=== PATIENT | female | born 1980 | race Caucasian/White ===

== ENCOUNTER → 2016-09-22 | Outpatient (REF) | payer OTHER ==
[2016-09-22 13:48] LABS: ALBUMIN 4.1 GM/DL (3.2-5.2); ALBUMIN/GLOBULIN RATIO 1.17 (1.00-1.93); ALKALINE PHOSPHATASE 84 U/L (45-117); ALT/SGPT 33 U/L (12-78); ANION GAP 7 MEQ/L (8-16); AST/SGOT 24 U/L (15-37); BILIRUBIN,TOTAL 0.4 MG/DL (0.2-1.0); BLOOD UREA NITROGEN 11 MG/DL (7-18); CALCIUM LEVEL 9.3 MG/DL (8.5-10.1); CARBON DIOXIDE LEVEL 27 MEQ/L (21-32); CHLORIDE LEVEL 106 MEQ/L (98-107); CREATININE FOR GFR 0.79 MG/DL (0.55-1.02); GLOMERULAR FILTRATION RATE > 60.0 (>60); GLUCOSE, FASTING 88 MG/DL (70-105); POTASSIUM SERUM 4.3 MEQ/L (3.5-5.1); SODIUM LEVEL 140 MEQ/L (136-145); TOTAL PROTEIN 7.6 GM/DL (6.4-8.2)
[2016-09-22 14:13] LABS: BASO % 0.7 % (0.0-1.0); EOS % 0.5 % (0.0-3.0); LARGE UNSTAINED CELL # 0.1 K/mm3 (0.0-0.4); LARGE UNSTAINED CELL % 1.5 % (0.0-4.0); LYMPH # 1.8 K/mm3 (1.5-4.5); MEAN CORPUSCULAR HEMOGLOBIN 30.7 pg (27.0-33.0); MEAN CORPUSCULAR HGB CONC 33.5 g/dl (32.0-36.5); MEAN CORPUSCULAR VOLUME 91.6 fl (80.0-96.0); MONO # 0.4 K/mm3 (0.0-0.8); MONO % 4.6 % (0.0-5.0); NEUTROPHILS # 5.6 K/mm3 (1.8-7.7); NEUTROPHILS % 69.8 % (36.0-66.0); PLATELET COUNT, AUTOMATED 311 k/mm3 (150-450); RED CELL DISTRIBUTION WIDTH 12.5 % (11.5-14.5)
[2016-09-24 08:08] LABS: MUMPS VIRUS IgM ANTIBODY <0.80 AU (0.00-0.79)
== END | disposition home or self-care (01) ==
LOC: M SFHCPLAZ 11:21
PROVIDERS: ATTEND Nurse Practitioner Family
DX: K11.20 Sialoadenitis, unspecified (principal)

== ENCOUNTER 2016-09-23 12:35 | Emergency (ER) | payer OTHER ==
[2016-09-23] MEDS ORDERED: MORPHINE 4 MG/ML 1ML SYRINGE As Ordered ONE (13:57)
[2016-09-23 14:08] LABS: BASO % 0.1 % (0.0-1.0); EOS % 0.1 % (0.0-3.0); LARGE UNSTAINED CELL # 0.1 K/mm3 (0.0-0.4); LARGE UNSTAINED CELL % 0.5 % (0.0-4.0); LYMPH % 8.6 % (24.0-44.0); MEAN CORPUSCULAR HEMOGLOBIN 31.3 pg (27.0-33.0); MEAN CORPUSCULAR HGB CONC 34.4 g/dl (32.0-36.5); MONO # 0.2 K/mm3 (0.0-0.8); MONO % 1.7 % (0.0-5.0); NEUTROPHILS % 89.1 % (36.0-66.0); PLATELET COUNT, AUTOMATED 309 k/mm3 (150-450); RED CELL DISTRIBUTION WIDTH 12.6 % (11.5-14.5); WHITE BLOOD COUNT 11.2 K/mm3 (4.0-10.0)
[2016-09-23 14:24] LABS: ANION GAP 7 MEQ/L (8-16); BLOOD UREA NITROGEN 12 MG/DL (7-18); CALCIUM LEVEL 9.1 MG/DL (8.5-10.1); CARBON DIOXIDE LEVEL 27 MEQ/L (21-32); CHLORIDE LEVEL 107 MEQ/L (98-107); CREATININE FOR GFR 0.86 MG/DL (0.55-1.02); GLOMERULAR FILTRATION RATE > 60.0 (>60); GLUCOSE, FASTING 136 MG/DL (70-105); POTASSIUM SERUM 4.2 MEQ/L (3.5-5.1); SODIUM LEVEL 141 MEQ/L (136-145)
[2016-09-23] MEDS ORDERED: ISOVUE-370 76% 100ML VIAL (Q9967) As Ordered ONE (14:41)
[2016-09-23 15:09] LABS: ERYTHROCYTE SEDIMENTATION RATE 24 mm/hr (0-20)
--- NOTE | 2016-09-23 15:10 | REP ---
CT BRAIN WITHOUT CONTRAST: 09/23/2016 No comparison study. CLINICAL HISTORY: Headaches, neck pain. FINDINGS: Soft tissue and bone windows show ventricles midline, symmetric and without dilatation or displacement. The rogers-white junction differentiation was well maintained. There is no intra or extra-axial hemorrhage, mass, mass effect or edema. Basal ganglia and the white matter tracts are unremarkable. The cortical stripe was preserved. Brainstem and cerebellum intact. Basal cisterns unremarkable. The visualized sinuses and mastoids are clear. The calvarium and skull base are without fracture or focal lesion. IMPRESSION: 1. Normal noncontrast CT brain. No intracranial hemorrhage, mass, edema or other acute finding. The skull base, calvarium, visible sinuses and mastoids are intact. Signed by Tae Staton MD 09/23/2016 05:08 P
[2016-09-23] MEDS ORDERED: KETOROLAC 30 MG/ML VIAL (J1885) As Ordered ONE (15:29)
[2016-09-23] MEDS ORDERED: CLINDAMYCIN 600 MG/50 ML PREMIX BAG As Ordered ONE (15:29)
--- NOTE | 2016-09-23 15:39 | REP ---
CT SOFT-TISSUE NECK WITH CONTRAST: 09/23/2016. Clinical history: Neck pain, Devin's angina versus retropharyngeal abscess. Technique: Bolus of 100 mls of Isovue 370 given with axial images in both coronal and sagittal reconstructions provided. Findings: Dense spray artifact from dental amalgam from the maxillary and mandibular dentition. This limits evaluation in these areas. I do not see asymmetry, fluid collections, edema or subcutaneous emphysema in the submandibular space on either side. The submandibular gland is slightly enlarged on the left compared to the right. There is no evidence of fluid collection or abscess within it. There is a node adjacent to the left submandibular gland up to 6.4 mm in short axis, while on the right side it is 6.6 mm, although the gland is smaller. These are not felt to be of pathologic size. Tongue base intact. Parapharyngeal spaces preserved. Epiglottis, its folds, the valleculae and piriform sinuses are all unremarkable. Larynx and subglottic trachea intact as are the thyroid lobes. The parotid glands are symmetric and normal. Some mild subcutaneous edema around the mandible on each side. It is not well defined and there is no fluid collection or abscess evident. This could be inflammatory change or phlegmon. Anterior and posterior strap muscles of the neck were intact. Visualized vascular structures grossly intact. The bone window settings show cervical spine, its posterior elements, craniocervical junction and skull base intact. Mandible has multiple absent teeth without destructive lesion or fracture. Visualized mastoids show no acute finding. Sinuses were clear. Impression: 1. There is no CT evidence of airway compromise from the nasopharynx through the subglottic trachea. No prevertebral swelling, submandibular abscess or Devin's angina suggested. 2. Slightly asymmetrically larger left than right submandibular gland, but the parotid glands are symmetric and there is no pathologic sized adenopathy with the largest nodes in the neck adjacent to the submandibular gland on each side, a little over 6 mm and fairly symmetric. 3. No abnormal fluid collection or abscess anywhere in the neck soft tissues. There is some subcutaneous edema around the mandible which is ill defined and without fluid collection or destructive lesion of the mandible itself. Signed by Tae Staton MD 09/23/2016 05:09 P
[2016-09-23] MEDS ORDERED: PERCOCET 5MG/325MG TAB As Ordered ONE (16:20)
[2016-09-23] MEDS ORDERED: METOCLOPRAMIDE INJ 10MG/2ML VIAL (J2765) As Ordered ONE (16:52)
[2016-09-23] MEDS ORDERED: diphenhydrAMINE INJ 50MG/ML VIAL (J1200) As Ordered ONE (16:52)
--- NOTE | 2016-09-23 17:58 | EDDOCDS ---
Physician Documentation [facility] Name: Debra Alvarado Age: 35 yrs Sex: Female : 1980 Arrival Date: 09/23/2016 Time: 12:35 Bed I5 / M5 Private MD: Kitty Lopez D Disposition: 09/23/16 16:12 Discharged to Home/Self Care. Impression: Cellulitis of face - CHIN, Headache. - Condition is Stable. - Discharge Instructions: Cellulitis. - Prescriptions for Clindamycin HCl 300 mg Oral Capsule - take 1 capsule by ORAL route every 6 hours; 40 capsule. Percocet 5- 325 mg Oral Tablet - take 1 tablet by ORAL route every 6 hours As needed MDD: 4 tabs; 15 tablet. - Medication Reconciliation, Local Pharmacy Hours form. - Follow up: Emergency Department; When: As needed; Reason: Worsening of conditions. Follow up: Private Physician; When: 2 - 3 days; Reason: Wound/Symptom Recheck, Recheck today's complaints, Continuance of care. - Problem is new. - Symptoms are unchanged. Historical: - Allergies: Augmentin; Bees; Biaxin; Codeine Sulfate; Tramadol HCl; - Home Meds: 1. chlorthalidone 25 mg Oral tab 0.5 tab once daily 2. carvedilol 3.125 mg oral tab 1 tab 2 times per day 3. losartan 100 mg oral tab 1 tab once daily nightly 4. spironolactone 25 mg Oral tab 0.5 tab once daily 5. Prednisone 40mg x 5 days Oral 6. naproxen 500 mg Oral TbEC 1 tab 2 times per day - PMHx: Hypertension; Left adrenal tumor; - PSHx: Laparoscopy; ; Cholecystectomy; Tonsillectomy; ulnar nerve transposition; - Social history: Smoking status: Patient states was never smoker of tobacco. No barriers to communication noted, The patient speaks fluent Faroese, Speaks appropriately for age. - Family history: Not pertinent. - : The pt / caregiver states he / she is not on anticoagulants. Home medication list is obtained from the patient. - Exposure Risk Screening:: None identified. 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 7 in. (170.18 cm) (R); Pain 8/10; 13:19 BP 175 / 99 LA Sitting (auto/lg); ct3 13:22 BP 168 / 92 RA Sitting (man/lg); ct3 16:13 BP 192 / 100; Pulse 61; Resp 20; Temp 97.8(TE); Pulse Ox 99% on R/A; Pain 8/10; jml1 16:41 BP 200 / 108 LA Supine (man/lg); jml1 17:26 Pain 5/10; mcp 17:27 BP 150 / 90; Pain 5/10; mcp 12:37 Body Mass Index 36.96 (107.05 kg, 170.18 cm) jrd MDM: 13:02 Recheck B/P ordered. dt4 13:31 IV Saline Lock ordered. dt4 13:31 NS 0.9% 1000 ml IV at bolus once ordered. dt4 13:31 morphine 4 mg IVP once ordered. dt4 13:32 CBC with Diff Ordered. EDMS 13:32 Basic Metabolic Profile Ordered. EDMS 13:32 CRP Ordered. EDMS 13:32 Sed Rate Ordered. EDMS 13:32 CT Neck With Contrast Ordered. EDMS 13:47 -Blood Culture (Adults Only), peripheral from different site, or from device/port/PICC dt4 etc. if present ordered. 13:48 Lactic Acid (Wetzel tube on ice) Ordered. EDMS 13:48 -Blood Culture Ordered. EDMS 13:49 CT Head Without Contrast Ordered. EDMS 14:00 -Blood Culture (Adults Only), peripheral from different site, or from device/port/PICC jml1 etc. if present complete. 14:01 BLOOD CULTURES Ordered. EDMS 15:19 ketorolac 15 mg IVP once ordered. dt4 15:22 Clindamycin 600 mg IVPB once over 30 mins; dilute in 50mL of NS or D5W ordered. dt4 16:13 oxyCODONE-acetaminophen 5 mg-325 mg 1 tabs PO once ordered. dt4 16:42 Metoclopramide 20 mg IV at 80 mg/hr once over 15 mins ordered. dt4 16:42 diphenhydrAMINE 25 mg IVP once ordered. dt4 Administered Medications: 14:01 Drug: NS 0.9% 1000 ml [sodium chloride 0.9 % intravenous solution] Route: IV; Rate: mcp bolus; Site: right antecubital; 14:01 Drug: morphine 4 mg [morphine 4 mg/mL intravenous cartridge (1 mL)] Route: IVP; Site: mcp right antecubital; 15:38 Drug: ketorolac 15 mg [ketorolac 30 mg/mL (1 mL) injection solution (0.5 mL)] Route: mcp IVP; Site: right antecubital; 15:38 Drug: Clindamycin 600 mg [clindamycin 600 mg/50 mL in 5 % dextrose intravenous mcp piggyback] Route: IVPB; Infused Over: 30 mins; Site: right antecubital; 16:24 Drug: oxyCODONE-acetaminophen 1 tabs [oxycodone-acetaminophen 5 mg-325 mg tablet (1 mk4 tabs)] Route: PO; 16:59 Drug: Metoclopramide 20 mg [metoclopramide 5 mg/mL injection solution] Route: IV; Rate: mcp 80 mg/hr; Infused Over: 15 mins; Site: right antecubital; 17:26 Follow up: Pain 5/10 Adult; IV Status: Completed infusion; IV Intake: 17ml mcp 16:59 Drug: diphenhydrAMINE 25 mg [diphenhydramine 50 mg/mL injection solution (0.5 mL)] mcp Route: IVP; Site: right antecubital; Signatures: Dispatcher [employer] Mar Kunz RN RN mcp Helmerci, Jennifer, RN RN jo3 Traver, Jamie jm Emily Parks RN RN mk4 Marielena Garduno PA-C PAJennifer dt4 MTDD
--- NOTE | 2016-09-23 17:58 | EDDOCDS ---
Nurse's Notes [facility] Name: Debra Alvarado Age: 35 yrs Sex: Female : 1980 Arrival Date: 09/23/2016 Time: 12:35 Bed I5 / M5 Private MD: Kitty Lopez D Diagnosis: Cellulitis of face-CHIN;Headache Presentation: 09/23 12:49 Presenting complaint: Patient states: Diagnosed with Mumps and symptoms are worsening jo3 so PCP referred pt to come to ED. Facial swelling and stiff neck with MALHOTRA and muscle soreness. This patient has no additional risk factors. Adult Sepsis Screening: The patient does not have new or worsening altered mentation. Patient's respiratory rate is less than 22. Systolic blood pressure is greater than 100. Patient has a qSOFA score of 0- Negative Sepsis Screen. Suicide/Homicide risk assessment- the patient denies having any suicidal and/or homicidal ideations and does not present with any other emotional, behavioral or mental health complaints. Status: Patient is not a mobile equipment servicer or dependent. Transition of care: patient was not received from another setting of care. 12:49 Acuity: DEV Level 3 jo3 12:49 Method Of Arrival: Walkin/Carried/Asstd jo3 Triage Assessment: 12:54 Headache History: This patient does not have a history of previous headaches. General: jo3 Appears in no apparent distress, Behavior is appropriate for age, cooperative. Pain: Pain currently is 8 out of 10 on a pain scale. HIV screening NA for this visit Offered previously. Neurological: Level of Consciousness is awake, alert, Oriented to person, place, time. 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 chlorthalidone 25 mg Oral tab 0.5 tab once daily 2. carvedilol 3.125 mg oral tab 1 tab 2 times per day 3. losartan 100 mg oral tab 1 tab once daily nightly 4. spironolactone 25 mg Oral tab 0.5 tab once daily 5. Prednisone 40mg x 5 days Oral 6. naproxen 500 mg Oral TbEC 1 tab 2 times per day - PMHx: Hypertension; Left adrenal tumor; - PSHx: Laparoscopy; ; Cholecystectomy; Tonsillectomy; ulnar nerve transposition; - Social history: Smoking status: Patient states was never smoker of tobacco. No barriers to communication noted, The patient speaks fluent Salvadorean, Speaks appropriately for age. - Family history: Not pertinent. - : The pt / caregiver states he / she is not on anticoagulants. Home medication list is obtained from the patient. - Exposure Risk Screening:: None identified. Screenin:02 Screening information is obtained from the patient. Fall risk: No risks identified. mcp Assistance ADL's: requires no assistance with activities of daily living. Abuse/DV Screen: The patient / caregiver reports he/she is: not in a situation that causes fear, pain or injury. Nutritional screening: No deficits noted. Advance Directives: Currently, there is no health care proxy. There is no active DNR order. There is no Power of Librarian Special Collections. home support is adequate. Assessment: 14:01 General: Appears uncomfortable, Behavior is cooperative. Pain: Location: head and neck mcp Pain currently is 8 out of 10 on a pain scale. Neurological: Reports headache. Respiratory: Airway is patent Respiratory effort is even, unlabored. Derm: Skin is pink, warm & dry. 14:45 General: Appears uncomfortable, Behavior is cooperative, crying. Pain: Location: neck mcp and head Pain currently is 8 out of 10 on a pain scale. Neurological: Reports headache. Respiratory: Airway is patent Respiratory effort is even, unlabored. Derm: Skin is pink, warm & dry. 15:40 EENT: Derm: Skin is flushed. mcp 15:58 General: Appears uncomfortable, Behavior is cooperative. mcp 17:29 General: Appears uncomfortable, Behavior is cooperative. Pain: Location: head Pain mcp currently is 5 out of 10 on a pain scale. Neurological: Reports headache. Respiratory: Airway is patent Respiratory effort is even, unlabored. Derm: Skin is pink, warm & dry. 17:55 General: Appears in no apparent distress, comfortable, Behavior is cooperative. Pain: mk4 Denies pain. 17:56 Reassessment: Patient states feeling better. Patient states symptoms have improved. mk4 Vital Signs: 12:37 BP 184 / 104; Pulse 75; Resp 16; Temp 98.8; Pulse Ox 99% on R/A; Weight 107.05 kg (R); jrd Height 5 ft. 7 in. (170.18 cm) (R); Pain 8/10; 13:19 BP 175 / 99 LA Sitting (auto/lg); ct3 13:22 BP 168 / 92 RA Sitting (man/lg); ct3 16:13 BP 192 / 100; Pulse 61; Resp 20; Temp 97.8(TE); Pulse Ox 99% on R/A; Pain 8/10; jml1 16:41 BP 200 / 108 LA Supine (man/lg); jml1 17:26 Pain 5/10; mcp 17:27 BP 150 / 90; Pain 5/10; mcp 12:37 Body Mass Index 36.96 (107.05 kg, 170.18 cm) d Vitals: 12:37 Log In Time: September 23, 2016 at 12:29. [facility] ED Course: 12:37 Patient visited by Michael Andrade PCA. jrd 12:37 Kitty Lopez is Private Physician. jrd 12:37 Patient moved to Waiting jrd 12:39 Patient visited by Michael Andrade PCA. jrd 12:39 Patient moved to Pre RCE jrd 12:51 Triage Initiated jo3 12:55 Patient visited by Debra Arnold RN. jo3 12:57 Patient moved to Triage 3 kcs 13:01 Marielena Garduno PA-C is PHCP. dt4 13:01 Rhea Calvert MD is Attending Physician. dt4 13:01 Patient visited by Marielena Garduno PA-C. dt4 13:19 Patient visited by Clara Solorio PCA. ct3 13:22 Patient visited by Clara Solorio PCA. ct3 13:35 Patient moved to I5 / M5 ct3 13:56 Lactic Acid (Wetzel tube on ice) Sent. mcp 13:56 -Blood Culture Sent. mcp 13:56 Sed Rate Sent. mcp 13:56 CRP Sent. mcp 13:56 Basic Metabolic Profile Sent. mcp 13:56 CBC with Diff Sent. mcp 14:02 The patient / caregiver is instructed regarding the plan of care and ED course. Patient mcp has correct armband on for positive identification. Placed in gown. Bed in low position. Call light in reach. 14:02 Inserted saline lock: 20 gauge in right antecubital area and blood collected. The [facility] patient tolerated the procedure well. Labs drawn. (by ED staff). Sent per order to lab. 14:03 Patient visited by Mar Garcia RN. [facility] 14:08 BLOOD CULTURES Sent. jml1 15:09 Patient visited by Emily Parks RN. mk4 15:19 Patient visited by Marielena Garduno PA-C. dt4 15:19 Warm blanket given. jml1 15:20 Patient visited by Willis Disla. jml1 15:36 Patient visited by Mar Garcia RN. mcp 15:40 No procedures done that require assistance. mcp 15:46 CT Head Without Contrast Returned. EDIL 15:47 CT Neck With Contrast Returned. EDMS 16:08 Patient visited by Emily Parks RN. mk4 16:13 Patient visited by Willis Disla. jml1 16:41 Patient visited by Willis Disla. jml1 17:30 Patient visited by Mar Garcia RN. [facility] Administered Medications: 14:01 Drug: NS 0.9% 1000 ml [sodium chloride 0.9 % intravenous solution] Route: IV; Rate: mcp bolus; Site: right antecubital; 14:01 Drug: morphine 4 mg [morphine 4 mg/mL intravenous cartridge (1 mL)] Route: IVP; Site: [facility] right antecubital; 15:38 Drug: ketorolac 15 mg [ketorolac 30 mg/mL (1 mL) injection solution (0.5 mL)] Route: mcp IVP; Site: right antecubital; 15:38 Drug: Clindamycin 600 mg [clindamycin 600 mg/50 mL in 5 % dextrose intravenous mcp piggyback] Route: IVPB; Infused Over: 30 mins; Site: right antecubital; 16:24 Drug: oxyCODONE-acetaminophen 1 tabs [oxycodone-acetaminophen 5 mg-325 mg tablet (1 mk4 tabs)] Route: PO; 16:59 Drug: Metoclopramide 20 mg [metoclopramide 5 mg/mL injection solution] Route: IV; Rate: mcp 80 mg/hr; Infused Over: 15 mins; Site: right antecubital; 17:26 Follow up: Pain 5/10 Adult; IV Status: Completed infusion; IV Intake: 17ml [facility] 16:59 Drug: diphenhydrAMINE 25 mg [diphenhydramine 50 mg/mL injection solution (0.5 mL)] mcp Route: IVP; Site: right antecubital; Intake: 17:26 IV: 17.00ml; Total: 17.00ml. mcp Order Results: Lab Order: CBC with Diff; SPEC'M 09/23/16 13:54 Test: WHITE BLOOD COUNT; Value: 11.2; Range: 4.0-10.0; Abnormal: Above high normal; Units: K/mm3; Status: F Test: RED BLOOD COUNT; Value: 4.39; Range: 4.00-5.40; Units: M/mm3; Status: F Test: HEMOGLOBIN; Value: 13.8; Range: 12.0-16.0; Units: g/dl; Status: F Test: HEMATOCRIT; Value: 40.0; Range: 36.0-47.0; Units: %; Status: F Test: MEAN CORPUSCULAR VOLUME; Value: 91.0; Range: 80.0-96.0; Units: fl; Status: F Test: MEAN CORPUSCULAR HEMOGLOBIN; Value: 31.3; Range: 27.0-33.0; Units: pg; Status: F Test: MEAN CORPUSCULAR HGB CONC; Value: 34.4; Range: 32.0-36.5; Units: g/dl; Status: F Test: RED CELL DISTRIBUTION WIDTH; Value: 12.6; Range: 11.5-14.5; Units: %; Status: F Test: PLATELET COUNT, AUTOMATED; Value: 309; Range: 150-450; Units: k/mm3; Status: F Test: NEUTROPHILS %; Value: 89.1; Range: 36.0-66.0; Abnormal: Above high normal; Units: %; Status: F Test: LYMPH %; Value: 8.6; Range: 24.0-44.0; Abnormal: Below low normal; Units: %; Status: F Test: MONO %; Value: 1.7; Range: 0.0-5.0; Units: %; Status: F Test: EOS %; Value: 0.1; Range: 0.0-3.0; Units: %; Status: F Test: BASO %; Value: 0.1; Range: 0.0-1.0; Units: %; Status: F Test: LARGE UNSTAINED CELL %; Value: 0.5; Range: 0.0-4.0; Units: %; Status: F Test: NEUTROPHILS #; Value: 10.0; Range: 1.8-7.7; Abnormal: Above high normal; Units: K/mm3; Status: F Test: LYMPH #; Value: 1.0; Range: 1.5-4.5; Abnormal: Below low normal; Units: K/mm3; Status: F Test: MONO #; Value: 0.2; Range: 0.0-0.8; Units: K/mm3; Status: F Test: EOS #; Value: 0.0; Range: 0.0-0.50; Units: K/mm3; Status: F Test: BASO #; Value: 0.0; Range: 0.0-0.2; Units: K/mm3; Status: F Test: LARGE UNSTAINED CELL #; Value: 0.1; Range: 0.0-0.4; Units: K/mm3; Status: F Lab Order: Basic Metabolic Profile; [facility] 09/23/16 13:54 Test: GLUCOSE, FASTING; Value: 136; Range: 70-105; Abnormal: Above high normal; Units: MG/DL; Status: F Test: BLOOD UREA NITROGEN; Value: 12; Range: 7-18; Units: MG/DL; Status: F Test: CREATININE FOR GFR; Value: 0.86; Range: 0.55-1.02; Units: MG/DL; Status: F Test: GLOMERULAR FILTRATION RATE; Value: > 60.0; Range: >60; Status: F Test: SODIUM LEVEL; Value: 141; Range: 136-145; Units: MEQ/L; Status: F Test: POTASSIUM SERUM; Value: 4.2; Range: 3.5-5.1; Units: MEQ/L; Status: F Test: CHLORIDE LEVEL; Value: 107; Range: 98-107; Units: MEQ/L; Status: F Test: CARBON DIOXIDE LEVEL; Value: 27; Range: 21-32; Units: MEQ/L; Status: F Test: ANION GAP; Value: 7; Range: 8-16; Abnormal: Below low normal; Units: MEQ/L; Status: F Test: CALCIUM LEVEL; Value: 9.1; Range: 8.5-10.1; Units: MG/DL; Status: F Test Note: ; Units are mL/min/1.73 m2 Chronic Kidney Disease Staging per NKF: Stage I & II GFR >=60 Normal to Mildly Decreased Stage III GFR 30-59 Moderately Decreased Stage IV GFR 15-29 Severely Decreased Stage V GFR <15 Very Little GFR Left ESRD 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 <15 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 Lab Order: CRP; SPEC09/23/16 13:54 Test: C REACTIVE PROTEIN QUANTITATIV; Value: 0.72; Range: 0.00-0.30; Abnormal: Above high normal; Units: MG/DL; Status: F Lab Order: Sed Rate; [facility]09[facility] 13:54 Test: ERYTHROCYTE SEDIMENTATION RATE; Value: 24; Range: 0-20; Abnormal: Above high normal; Units: mm/hr; Status: F Lab Order: Lactic Acid (Wetzel tube on ice); [facility]09/[facility] 13:54 Test: LACTIC ACID SEPSIS PROTOCOL; Value: 1.6; Range: 0.4-2.0; Units: MMOL/L; Status: F Radiology Order: CT Neck With Contrast Test: CT Neck With Contrast REASON FOR EXAMINATION: neck pain, ludvig's angina vs retrophar abscess; CT SOFT-TISSUE NECK WITH CONTRAST: 09/23/2016.; ; Clinical history: Neck pain, Devin's angina versus retropharyngeal abscess.; ; Technique: Bolus of 100 mls of Isovue 370 given with axial images in both coronal; and sagittal reconstructions provided.; ; Findings: Dense spray artifact from dental amalgam from the maxillary and; mandibular dentition. This limits evaluation in these areas. I do not see; asymmetry, fluid collections, edema or subcutaneous emphysema in the; submandibular space on either side. The submandibular gland is slightly enlarged; on the left compared to the right. There is no evidence of fluid collection or; abscess within it. There is a node adjacent to the left submandibular gland up; to 6.4 mm in short axis, while on the right side it is 6.6 mm, although the gland; is smaller. These are not felt to be of pathologic size. Tongue base intact.; Parapharyngeal spaces preserved. Epiglottis, its folds, the valleculae and; piriform sinuses are all unremarkable. Larynx and subglottic trachea intact as; are the thyroid lobes. The parotid glands are symmetric and normal. Some mild; subcutaneous edema around the mandible on each side. It is not well defined and; there is no fluid collection or abscess evident. This could be inflammatory; change or phlegmon. Anterior and posterior strap muscles of the neck were; intact. Visualized vascular structures grossly intact. The bone window settings; show cervical spine, its posterior elements, craniocervical junction and skull; base intact. Mandible has multiple absent teeth without destructive lesion or; fracture.; ; Visualized mastoids show no acute finding. Sinuses were clear.; ; Impression:; ; 1. There is no CT evidence of airway compromise from the nasopharynx through the; subglottic trachea. No prevertebral swelling, submandibular abscess or Devin's; angina suggested.; ; 2. Slightly asymmetrically larger left than right submandibular gland, but the; parotid glands are symmetric and there is no pathologic sized adenopathy with the; largest nodes in the neck adjacent to the submandibular gland on each side, a; little over 6 mm and fairly symmetric.; ; 3. No abnormal fluid collection or abscess anywhere in the neck soft tissues.; There is some subcutaneous edema around the mandible which is ill defined and; without fluid collection or destructive lesion of the mandible itself.; ; ; Signed by; Tae Staton MD 09/23/2016 05:09 P; Radiology Order: CT Head Without Contrast Test: CT Head Without Contrast REASON FOR EXAMINATION: malhotra, neck pain; CT BRAIN WITHOUT CONTRAST: 09/23/2016; ; No comparison study.; ; CLINICAL HISTORY: Headaches, neck pain.; ; FINDINGS: Soft tissue and bone windows show ventricles midline, symmetric and; without dilatation or displacement. The wetzel-white junction differentiation was; well maintained. There is no intra or extra-axial hemorrhage, mass, mass effect; or edema. Basal ganglia and the white matter tracts are unremarkable. The; cortical stripe was preserved. Brainstem and cerebellum intact. Basal cisterns; unremarkable. The visualized sinuses and mastoids are clear. The calvarium and; skull base are without fracture or focal lesion.; ; IMPRESSION:; ; 1. Normal noncontrast CT brain. No intracranial hemorrhage, mass, edema or; other acute finding. The skull base, calvarium, visible sinuses and mastoids are; intact.; ; ; Signed by; Tae Staton MD 09/23/2016 05:08 P; Outcome: 16:12 Discharge ordered by Provider. dt4 17:55 Discharge Assessment: Patient awake, alert and oriented x 3. No cognitive and/or mk4 functional deficits noted. Patient verbalized understanding of disposition instructions. Patient awake and alert. Discharge Assessment: patient administered narcotics - yes. Pt provided with safe discharge. The following High Risk Discharge criteria are identified: None. Condition: good Condition: stable Condition: improved. Property sent home with patient. 17:56 CT Study completed. mk4 17:57 Patient left the ED. mk4 Signatures: Dispatcher [employer] EDMS Alejandra Scott RN Mar Saenz RN RN mcp Helmerci, Jennifer, RN RN jo3 Clara Solorio, HULL INSPECTOR HULL INSPECTOR ct3 Willis Disla jml1 Emily Parks RN RN mk4 Marielena Garduno, PA-C PA-C dt4 Michael Andrade, HULL INSPECTOR HULL INSPECTOR jrd MARIAND
--- NOTE | 2016-09-25 18:58 | EDDOCDS ---
Physician Documentation [facility] Name: Debra Alvarado Age: 35 yrs Sex: Female : 1980 Arrival Date: 09/23/2016 Time: 12:35 Bed I5 / M5 Private MD: Kitty Lopez D Disposition: 09/23/16 16:12 Discharged to Home/Self Care. Impression: Cellulitis of face - CHIN, Headache. - Condition is Stable. - Discharge Instructions: Cellulitis. - Prescriptions for Clindamycin HCl 300 mg Oral Capsule - take 1 capsule by ORAL route every 6 hours; 40 capsule. Percocet 5- 325 mg Oral Tablet - take 1 tablet by ORAL route every 6 hours As needed MDD: 4 tabs; 15 tablet. - Medication Reconciliation, Local Pharmacy Hours form. - Follow up: Emergency Department; When: As needed; Reason: Worsening of conditions. Follow up: Private Physician; When: 2 - 3 days; Reason: Wound/Symptom Recheck, Recheck today's complaints, Continuance of care. - Problem is new. - Symptoms are unchanged. Historical: - Allergies: Augmentin; Bees; Biaxin; Codeine Sulfate; Tramadol HCl; - Home Meds: 1. chlorthalidone 25 mg Oral tab 0.5 tab once daily 2. carvedilol 3.125 mg oral tab 1 tab 2 times per day 3. losartan 100 mg oral tab 1 tab once daily nightly 4. spironolactone 25 mg Oral tab 0.5 tab once daily 5. Prednisone 40mg x 5 days Oral 6. naproxen 500 mg Oral TbEC 1 tab 2 times per day - PMHx: Hypertension; Left adrenal tumor; - PSHx: Laparoscopy; ; Cholecystectomy; Tonsillectomy; ulnar nerve transposition; - Social history: Smoking status: Patient states was never smoker of tobacco. No barriers to communication noted, The patient speaks fluent Chilean, Speaks appropriately for age. - Family history: Not pertinent. - : The pt / caregiver states he / she is not on anticoagulants. Home medication list is obtained from the patient. - Exposure Risk Screening:: None identified. 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 7 in. (170.18 cm) (R); Pain 8/10; 13:19 BP 175 / 99 LA Sitting (auto/lg); ct3 13:22 BP 168 / 92 RA Sitting (man/lg); ct3 16:13 BP 192 / 100; Pulse 61; Resp 20; Temp 97.8(TE); Pulse Ox 99% on R/A; Pain 8/10; jml1 16:41 BP 200 / 108 LA Supine (man/lg); jml1 17:26 Pain 5/10; mcp 17:27 BP 150 / 90; Pain 5/10; mcp 12:37 Body Mass Index 36.96 (107.05 kg, 170.18 cm) jrd MDM: 13:02 Recheck B/P ordered. dt4 13:31 IV Saline Lock ordered. dt4 13:31 NS 0.9% 1000 ml IV at bolus once ordered. dt4 13:31 morphine 4 mg IVP once ordered. dt4 13:32 CBC with Diff Ordered. EDMS 13:32 Basic Metabolic Profile Ordered. EDMS 13:32 CRP Ordered. EDMS 13:32 Sed Rate Ordered. EDMS 13:32 CT Neck With Contrast Ordered. EDMS 13:47 -Blood Culture (Adults Only), peripheral from different site, or from device/port/PICC dt4 etc. if present ordered. 13:48 Lactic Acid (Wetzel tube on ice) Ordered. EDMS 13:48 -Blood Culture Ordered. EDMS 13:49 CT Head Without Contrast Ordered. EDMS 14:00 -Blood Culture (Adults Only), peripheral from different site, or from device/port/PICC jml1 etc. if present complete. 14:01 BLOOD CULTURES Ordered. EDMS 15:19 ketorolac 15 mg IVP once ordered. dt4 15:22 Clindamycin 600 mg IVPB once over 30 mins; dilute in 50mL of NS or D5W ordered. dt4 16:13 oxyCODONE-acetaminophen 5 mg-325 mg 1 tabs PO once ordered. dt4 16:42 Metoclopramide 20 mg IV at 80 mg/hr once over 15 mins ordered. dt4 16:42 diphenhydrAMINE 25 mg IVP once ordered. dt4 18:55 [facility] Payment Agreement was scanned into Listia and attached to record. luzmaria 18:55 Financial registration complete. luzmaria 09/24 09:11 T-Sheet-- Draft Copy was scanned into [employer]ia and attached to record. gb 09:12 Radiology Report was scanned into [employer] and attached to record. gb Administered Medications: 09/23 14:01 Drug: NS 0.9% 1000 ml [sodium chloride 0.9 % intravenous solution] Route: IV; Rate: mcp bolus; Site: right antecubital; 14:01 Drug: morphine 4 mg [morphine 4 mg/mL intravenous cartridge (1 mL)] Route: IVP; Site: mcp right antecubital; 15:38 Drug: ketorolac 15 mg [ketorolac 30 mg/mL (1 mL) injection solution (0.5 mL)] Route: mcp IVP; Site: right antecubital; 15:38 Drug: Clindamycin 600 mg [clindamycin 600 mg/50 mL in 5 % dextrose intravenous mcp piggyback] Route: IVPB; Infused Over: 30 mins; Site: right antecubital; 16:24 Drug: oxyCODONE-acetaminophen 1 tabs [oxycodone-acetaminophen 5 mg-325 mg tablet (1 mk4 tabs)] Route: PO; 16:59 Drug: Metoclopramide 20 mg [metoclopramide 5 mg/mL injection solution] Route: IV; Rate: mcp 80 mg/hr; Infused Over: 15 mins; Site: right antecubital; 17:26 Follow up: Pain 5/10 Adult; IV Status: Completed infusion; IV Intake: 17ml mcp 16:59 Drug: diphenhydrAMINE 25 mg [diphenhydramine 50 mg/mL injection solution (0.5 mL)] [facility] Route: IVP; Site: right antecubital; Signatures: Dispatcher [employer] Mar Kunz RN RN mcp Barnhardt, Gloria, Debra Coe RN RN jo3 Traver, Jamie jml1 King, Margaret, RN RN mk4 Marielena Garduno, PAJennifer PACharla Davis The chart was reviewed and I authenticate all verbal orders and agree with the evaluation and treatment provided.Attachments: 18:55 [facility] Payment Agreement jared 09/24 09:11 T-Sheet-- Draft Copy gb Chart Complete MTDD
--- NOTE | 2016-09-25 18:58 | EDDOCDS ---
Nurse's Notes [facility] Name: Debra Alvarado Age: 35 yrs Sex: Female : 1980 Arrival Date: 09/23/2016 Time: 12:35 Bed I5 / M5 Private MD: Kitty Lpoez D Diagnosis: Cellulitis of face-CHIN;Headache Presentation: 09/23 12:49 Presenting complaint: Patient states: Diagnosed with Mumps and symptoms are worsening jo3 so PCP referred pt to come to ED. Facial swelling and stiff neck with MALHOTRA and muscle soreness. This patient has no additional risk factors. Adult Sepsis Screening: The patient does not have new or worsening altered mentation. Patient's respiratory rate is less than 22. Systolic blood pressure is greater than 100. Patient has a qSOFA score of 0- Negative Sepsis Screen. Suicide/Homicide risk assessment- the patient denies having any suicidal and/or homicidal ideations and does not present with any other emotional, behavioral or mental health complaints. 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 Transition of care: patient was not received from another setting of care. 12:49 Acuity: DEV Level 3 jo3 12:49 Method Of Arrival: Walkin/Carried/Asstd jo3 Triage Assessment: 12:54 Headache History: This patient does not have a history of previous headaches. General: jo3 Appears in no apparent distress, Behavior is appropriate for age, cooperative. Pain: Pain currently is 8 out of 10 on a pain scale. HIV screening NA for this visit Offered previously. Neurological: Level of Consciousness is awake, alert, Oriented to person, place, time. 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 chlorthalidone 25 mg Oral tab 0.5 tab once daily 2. carvedilol 3.125 mg oral tab 1 tab 2 times per day 3. losartan 100 mg oral tab 1 tab once daily nightly 4. spironolactone 25 mg Oral tab 0.5 tab once daily 5. Prednisone 40mg x 5 days Oral 6. naproxen 500 mg Oral TbEC 1 tab 2 times per day - PMHx: Hypertension; Left adrenal tumor; - PSHx: Laparoscopy; ; Cholecystectomy; Tonsillectomy; ulnar nerve transposition; - Social history: Smoking status: Patient states was never smoker of tobacco. No barriers to communication noted, The patient speaks fluent Ugandan, Speaks appropriately for age. - Family history: Not pertinent. - : The pt / caregiver states he / she is not on anticoagulants. Home medication list is obtained from the patient. - Exposure Risk Screening:: None identified. Screenin:02 Screening information is obtained from the patient. Fall risk: No risks identified. mcp Assistance ADL's: requires no assistance with activities of daily living. Abuse/DV Screen: The patient / caregiver reports he/she is: not in a situation that causes fear, pain or injury. Nutritional screening: No deficits noted. Advance Directives: Currently, there is no health care proxy. There is no active DNR order. There is no Power of Director Records Management. home support is adequate. Assessment: 14:01 General: Appears uncomfortable, Behavior is cooperative. Pain: Location: head and neck mcp Pain currently is 8 out of 10 on a pain scale. Neurological: Reports headache. Respiratory: Airway is patent Respiratory effort is even, unlabored. Derm: Skin is pink, warm & dry. 14:45 General: Appears uncomfortable, Behavior is cooperative, crying. Pain: Location: neck mcp and head Pain currently is 8 out of 10 on a pain scale. Neurological: Reports headache. Respiratory: Airway is patent Respiratory effort is even, unlabored. Derm: Skin is pink, warm & dry. 15:40 EENT: Derm: Skin is flushed. mcp 15:58 General: Appears uncomfortable, Behavior is cooperative. mcp 17:29 General: Appears uncomfortable, Behavior is cooperative. Pain: Location: head Pain mcp currently is 5 out of 10 on a pain scale. Neurological: Reports headache. Respiratory: Airway is patent Respiratory effort is even, unlabored. Derm: Skin is pink, warm & dry. 17:55 General: Appears in no apparent distress, comfortable, Behavior is cooperative. Pain: mk4 Denies pain. 17:56 Reassessment: Patient states feeling better. Patient states symptoms have improved. mk4 Vital Signs: 12:37 BP 184 / 104; Pulse 75; Resp 16; Temp 98.8; Pulse Ox 99% on R/A; Weight 107.05 kg (R); jrd Height 5 ft. 7 in. (170.18 cm) (R); Pain 8/10; 13:19 BP 175 / 99 LA Sitting (auto/lg); ct3 13:22 BP 168 / 92 RA Sitting (man/lg); ct3 16:13 BP 192 / 100; Pulse 61; Resp 20; Temp 97.8(TE); Pulse Ox 99% on R/A; Pain 8/10; jml1 16:41 BP 200 / 108 LA Supine (man/lg); jml1 17:26 Pain 5/10; mcp 17:27 BP 150 / 90; Pain 5/10; mcp 12:37 Body Mass Index 36.96 (107.05 kg, 170.18 cm) d Vitals: 12:37 Log In Time: September 23, 2016 at 12:29. [facility] ED Course: 12:37 Patient visited by Michael Andrade PCA. jrd 12:37 Kitty Lopez is Private Physician. jrd 12:37 Patient moved to Waiting jrd 12:39 Patient visited by Michael Andrade PCA. jrd 12:39 Patient moved to Pre RCE jrd 12:51 Triage Initiated jo3 12:55 Patient visited by Debra Arnold RN. jo3 12:57 Patient moved to Triage 3 kcs 13:01 Marielena Garduno PA-C is PHCP. dt4 13:01 Rhea Calvert MD is Attending Physician. dt4 13:01 Patient visited by Marielena Garduno PA-C. dt4 13:19 Patient visited by Clara Solorio PCA. ct3 13:22 Patient visited by Clara Solorio PCA. ct3 13:35 Patient moved to I5 / M5 ct3 13:56 Lactic Acid (Wetzel tube on ice) Sent. mcp 13:56 -Blood Culture Sent. mcp 13:56 Sed Rate Sent. mcp 13:56 CRP Sent. mcp 13:56 Basic Metabolic Profile Sent. mcp 13:56 CBC with Diff Sent. mcp 14:02 The patient / caregiver is instructed regarding the plan of care and ED course. Patient mcp has correct armband on for positive identification. Placed in gown. Bed in low position. Call light in reach. 14:02 Inserted saline lock: 20 gauge in right antecubital area and blood collected. The [facility] patient tolerated the procedure well. Labs drawn. (by ED staff). Sent per order to lab. 14:03 Patient visited by Mar Garcia RN. [facility] 14:08 BLOOD CULTURES Sent. jml1 15:09 Patient visited by Emily Parks RN. mk4 15:19 Patient visited by Marielena Garduno PA-C. dt4 15:19 Warm blanket given. jml1 15:20 Patient visited by Willis Disla. jml1 15:36 Patient visited by Mar Garcia RN. mcp 15:40 No procedures done that require assistance. mcp 15:46 CT Head Without Contrast Returned. EDAL 15:47 CT Neck With Contrast Returned. EDMS 16:08 Patient visited by Emily Parks RN. mk4 16:13 Patient visited by Willis Disla. jml1 16:41 Patient visited by Willis Disla. jml1 17:30 Patient visited by Mar Garcia RN. [facility] 18:55 [facility] Payment Agreement was scanned into [employer] and attached to record. gjb 02 09:11 T-Sheet-- Draft Copy was scanned into Quantum and attached to record. gb 09:12 Radiology Report was scanned into Quantum and attached to record. gb Administered Medications: 09/23 14:01 Drug: NS 0.9% 1000 ml [sodium chloride 0.9 % intravenous solution] Route: IV; Rate: mcp bolus; Site: right antecubital; 14:01 Drug: morphine 4 mg [morphine 4 mg/mL intravenous cartridge (1 mL)] Route: IVP; Site: [facility] right antecubital; 15:38 Drug: ketorolac 15 mg [ketorolac 30 mg/mL (1 mL) injection solution (0.5 mL)] Route: mcp IVP; Site: right antecubital; 15:38 Drug: Clindamycin 600 mg [clindamycin 600 mg/50 mL in 5 % dextrose intravenous mcp piggyback] Route: IVPB; Infused Over: 30 mins; Site: right antecubital; 16:24 Drug: oxyCODONE-acetaminophen 1 tabs [oxycodone-acetaminophen 5 mg-325 mg tablet (1 mk4 tabs)] Route: PO; 16:59 Drug: Metoclopramide 20 mg [metoclopramide 5 mg/mL injection solution] Route: IV; Rate: mcp 80 mg/hr; Infused Over: 15 mins; Site: right antecubital; 17:26 Follow up: Pain 12/29 Adult; IV Status: Completed infusion; IV Intake: 17ml mcp 16:59 Drug: diphenhydrAMINE 25 mg [diphenhydramine 50 mg/mL injection solution (0.5 mL)] mcp Route: IVP; Site: right antecubital; Intake: 17:26 IV: 17.00ml; Total: 17.00ml. mcp Order Results: Lab Order: CBC with Diff; SPEC'M 09/23/16 13:54 Test: WHITE BLOOD COUNT; Value: 11.2; Range: 4.0-10.0; Abnormal: Above high normal; Units: K/mm3; Status: F Test: RED BLOOD COUNT; Value: 4.39; Range: 4.00-5.40; Units: M/mm3; Status: F Test: HEMOGLOBIN; Value: 13.8; Range: 12.0-16.0; Units: g/dl; Status: F Test: HEMATOCRIT; Value: 40.0; Range: 36.0-47.0; Units: %; Status: F Test: MEAN CORPUSCULAR VOLUME; Value: 91.0; Range: 80.0-96.0; Units: fl; Status: F Test: MEAN CORPUSCULAR HEMOGLOBIN; Value: 31.3; Range: 27.0-33.0; Units: pg; Status: F Test: MEAN CORPUSCULAR HGB CONC; Value: 34.4; Range: 32.0-36.5; Units: g/dl; Status: F Test: RED CELL DISTRIBUTION WIDTH; Value: 12.6; Range: 11.5-14.5; Units: %; Status: F Test: PLATELET COUNT, AUTOMATED; Value: 309; Range: 150-450; Units: k/mm3; Status: F Test: NEUTROPHILS %; Value: 89.1; Range: 36.0-66.0; Abnormal: Above high normal; Units: %; Status: F Test: LYMPH %; Value: 8.6; Range: 24.0-44.0; Abnormal: Below low normal; Units: %; Status: F Test: MONO %; Value: 1.7; Range: 0.0-5.0; Units: %; Status: F Test: EOS %; Value: 0.1; Range: 0.0-3.0; Units: %; Status: F Test: BASO %; Value: 0.1; Range: 0.0-1.0; Units: %; Status: F Test: LARGE UNSTAINED CELL %; Value: 0.5; Range: 0.0-4.0; Units: %; Status: F Test: NEUTROPHILS #; Value: 10.0; Range: 1.8-7.7; Abnormal: Above high normal; Units: K/mm3; Status: F Test: LYMPH #; Value: 1.0; Range: 1.5-4.5; Abnormal: Below low normal; Units: K/mm3; Status: F Test: MONO #; Value: 0.2; Range: 0.0-0.8; Units: K/mm3; Status: F Test: EOS #; Value: 0.0; Range: 0.0-0.50; Units: K/mm3; Status: F Test: BASO #; Value: 0.0; Range: 0.0-0.2; Units: K/mm3; Status: F Test: LARGE UNSTAINED CELL #; Value: 0.1; Range: 0.0-0.4; Units: K/mm3; Status: F Lab Order: Basic Metabolic Profile; [facility]' 09/23/16 13:54 Test: GLUCOSE, FASTING; Value: 136; Range: 70-105; Abnormal: Above high normal; Units: MG/DL; Status: F Test: BLOOD UREA NITROGEN; Value: 12; Range: 7-18; Units: MG/DL; Status: F Test: CREATININE FOR GFR; Value: 0.86; Range: 0.55-1.02; Units: MG/DL; Status: F Test: GLOMERULAR FILTRATION RATE; Value: > 60.0; Range: >60; Status: F Test: SODIUM LEVEL; Value: 141; Range: 136-145; Units: MEQ/L; Status: F Test: POTASSIUM SERUM; Value: 4.2; Range: 3.5-5.1; Units: MEQ/L; Status: F Test: CHLORIDE LEVEL; Value: 107; Range: 98-107; Units: MEQ/L; Status: F Test: CARBON DIOXIDE LEVEL; Value: 27; Range: 21-32; Units: MEQ/L; Status: F Test: ANION GAP; Value: 7; Range: 8-16; Abnormal: Below low normal; Units: MEQ/L; Status: F Test: CALCIUM LEVEL; Value: 9.1; Range: 8.5-10.1; Units: MG/DL; Status: F Test Note: ; Units are mL/min/1.73 m2 Chronic Kidney Disease Staging per NKF: Stage I & II GFR >=60 Normal to Mildly Decreased Stage III GFR 30-59 Moderately Decreased Stage IV GFR 15-29 Severely Decreased Stage V GFR <15 Very Little GFR Left ESRD GFR <15 on PERSONAL FINANCIAL 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 All specimens observed; Status: F Test: BLOOD CULTURE; Value: for 5 days. Results final at that time.; Status: F Test: BLOOD CULTURE; Value: No Growth after 48 hours. All Specimens observed; Status: F Test: BLOOD CULTURE; Value: for 7 days. Results final at that time.; Status: F Lab Order: Lactic Acid (Wetzel tube on ice); [facility] 09/23/16 13:54 Test: LACTIC ACID SEPSIS PROTOCOL; Value: 1.6; Range: 0.4-2.0; Units: MMOL/L; Status: F Lab Order: BLOOD CULTURES; [facility] 09/23/16 14:02 Test: BLOOD CULTURE; Value: No growth after 24 hours . All specimens observed; Status: F Test: BLOOD CULTURE; Value: for 5 days. Results final at that time.; Status: F Test: BLOOD CULTURE; Value: No Growth after 48 hours. All Specimens observed; Status: F Test: BLOOD CULTURE; Value: for 7 days. Results final at that time.; Status: F Radiology Order: CT Neck With Contrast Test: CT Neck With Contrast REASON FOR EXAMINATION: neck pain, ludvig's angina vs retrophar abscess; CT SOFT-TISSUE NECK WITH CONTRAST: 09/23/2016.; ; Clinical history: Neck pain, Devin's angina versus retropharyngeal abscess.; ; Technique: Bolus of 100 mls of Isovue 370 given with axial images in both coronal; and sagittal reconstructions provided.; ; Findings: Dense spray artifact from dental amalgam from the maxillary and; mandibular dentition. This limits evaluation in these areas. I do not see; asymmetry, fluid collections, edema or subcutaneous emphysema in the; submandibular space on either side. The submandibular gland is slightly enlarged; on the left compared to the right. There is no evidence of fluid collection or; abscess within it. There is a node adjacent to the left submandibular gland up; to 6.4 mm in short axis, while on the right side it is 6.6 mm, although the gland; is smaller. These are not felt to be of pathologic size. Tongue base intact.; Parapharyngeal spaces preserved. Epiglottis, its folds, the valleculae and; piriform sinuses are all unremarkable. Larynx and subglottic trachea intact as; are the thyroid lobes. The parotid glands are symmetric and normal. Some mild; subcutaneous edema around the mandible on each side. It is not well defined and; there is no fluid collection or abscess evident. This could be inflammatory; change or phlegmon. Anterior and posterior strap muscles of the neck were; intact. Visualized vascular structures grossly intact. The bone window settings; show cervical spine, its posterior elements, craniocervical junction and skull; base intact. Mandible has multiple absent teeth without destructive lesion or; fracture.; ; Visualized mastoids show no acute finding. Sinuses were clear.; ; Impression:; ; 1. There is no CT evidence of airway compromise from the nasopharynx through the; subglottic trachea. No prevertebral swelling, submandibular abscess or Devin's; angina suggested.; ; 2. Slightly asymmetrically larger left than right submandibular gland, but the; parotid glands are symmetric and there is no pathologic sized adenopathy with the; largest nodes in the neck adjacent to the submandibular gland on each side, a; little over 6 mm and fairly symmetric.; ; 3. No abnormal fluid collection or abscess anywhere in the neck soft tissues.; There is some subcutaneous edema around the mandible which is ill defined and; without fluid collection or destructive lesion of the mandible itself.; ; ; Signed by; Tae Staton MD 09/23/2016 05:09 P; Radiology Order: CT Head Without Contrast Test: CT Head Without Contrast REASON FOR EXAMINATION: malhotra, neck pain; CT BRAIN WITHOUT CONTRAST: 09/23/2016; ; No comparison study.; ; CLINICAL HISTORY: Headaches, neck pain.; ; FINDINGS: Soft tissue and bone windows show ventricles midline, symmetric and; without dilatation or displacement. The wetzel-white junction differentiation was; well maintained. There is no intra or extra-axial hemorrhage, mass, mass effect; or edema. Basal ganglia and the white matter tracts are unremarkable. The; cortical stripe was preserved. Brainstem and cerebellum intact. Basal cisterns; unremarkable. The visualized sinuses and mastoids are clear. The calvarium and; skull base are without fracture or focal lesion.; ; IMPRESSION:; ; 1. Normal noncontrast CT brain. No intracranial hemorrhage, mass, edema or; other acute finding. The skull base, calvarium, visible sinuses and mastoids are; intact.; ; ; Signed by; Tae Staton MD 09/23/2016 05:08 P; Outcome: 16:12 Discharge ordered by Provider. dt4 17:55 Discharge Assessment: Patient awake, alert and oriented x 3. No cognitive and/or mk4 functional deficits noted. Patient verbalized understanding of disposition instructions. Patient awake and alert. Discharge Assessment: patient administered narcotics - yes. Pt provided with safe discharge. The following High Risk Discharge criteria are identified: None. Condition: good Condition: stable Condition: improved. Property sent home with patient. 17:56 CT Study completed. mk4 17:57 Patient left the ED. mk4 Signatures: Dispatcher [employer] EDMS Alejandra Scott RN RN kcs Peters, Mary, RN RN mcp Barnhardt, Gloria, Valerio Reg Debra Hayes RN RN jo3 Clara Solorio, ICE SKATER ICE SKATER ct3 Willis Disla jml1 Emily Parks RN RN mk4 Marielena Garduno, PA-C PA-C dt4 Michael Andrade, ICE SKATER ICE SKATER jrd Charla Lyon Chart Complete MTDD
--- NOTE | 2016-09-25 18:58 | EDDOCDS ---
Physician Documentation [facility] Name: Debra Alvarado Age: 35 yrs Sex: Female : 1980 Arrival Date: 09/23/2016 Time: 12:35 Bed I5 / M5 Private MD: Kitty Lopez D Disposition: 09/23/16 16:12 Discharged to Home/Self Care. Impression: Cellulitis of face - CHIN, Headache. - Condition is Stable. - Discharge Instructions: Cellulitis. - Prescriptions for Clindamycin HCl 300 mg Oral Capsule - take 1 capsule by ORAL route every 6 hours; 40 capsule. Percocet 5- 325 mg Oral Tablet - take 1 tablet by ORAL route every 6 hours As needed MDD: 4 tabs; 15 tablet. - Medication Reconciliation, Local Pharmacy Hours form. - Follow up: Emergency Department; When: As needed; Reason: Worsening of conditions. Follow up: Private Physician; When: 2 - 3 days; Reason: Wound/Symptom Recheck, Recheck today's complaints, Continuance of care. - Problem is new. - Symptoms are unchanged. Historical: - Allergies: Augmentin; Bees; Biaxin; Codeine Sulfate; Tramadol HCl; - Home Meds: 1. chlorthalidone 25 mg Oral tab 0.5 tab once daily 2. carvedilol 3.125 mg oral tab 1 tab 2 times per day 3. losartan 100 mg oral tab 1 tab once daily nightly 4. spironolactone 25 mg Oral tab 0.5 tab once daily 5. Prednisone 40mg x 5 days Oral 6. naproxen 500 mg Oral TbEC 1 tab 2 times per day - PMHx: Hypertension; Left adrenal tumor; - PSHx: Laparoscopy; ; Cholecystectomy; Tonsillectomy; ulnar nerve transposition; - Social history: Smoking status: Patient states was never smoker of tobacco. No barriers to communication noted, The patient speaks fluent Eritrean, Speaks appropriately for age. - Family history: Not pertinent. - : The pt / caregiver states he / she is not on anticoagulants. Home medication list is obtained from the patient. - Exposure Risk Screening:: None identified. [employer]: 09/23 12:54 LMP 09/15/2016 jo3 Vital Signs: 12:37 BP 184 / 104; Pulse 75; Resp 16; Temp 98.8; Pulse Ox 99% on R/A; Weight 107.05 kg / 236 jrd lbs (R); Height 5 ft. 7 in. (170.18 cm) (R); Pain 8/10; 13:19 BP 175 / 99 LA Sitting (auto/lg); ct3 13:22 BP 168 / 92 RA Sitting (man/lg); ct3 16:13 BP 192 / 100; Pulse 61; Resp 20; Temp 97.8(TE); Pulse Ox 99% on R/A; Pain 8/10; jml1 16:41 BP 200 / 108 LA Supine (man/lg); jml1 17:26 Pain 5/10; mcp 17:27 BP 150 / 90; Pain 5/10; mcp 12:37 Body Mass Index 36.96 (107.05 kg, 170.18 cm) jrd MDM: 13:02 Recheck B/P ordered. dt4 13:31 IV Saline Lock ordered. dt4 13:31 NS 0.9% 1000 ml IV at bolus once ordered. dt4 13:31 morphine 4 mg IVP once ordered. dt4 13:32 CBC with Diff Ordered. EDMS 13:32 Basic Metabolic Profile Ordered. EDMS 13:32 CRP Ordered. EDMS 13:32 Sed Rate Ordered. EDMS 13:32 CT Neck With Contrast Ordered. EDMS 13:47 -Blood Culture (Adults Only), peripheral from different site, or from device/port/PICC dt4 etc. if present ordered. 13:48 Lactic Acid (Wetzel tube on ice) Ordered. EDMS 13:48 -Blood Culture Ordered. EDMS 13:49 CT Head Without Contrast Ordered. EDMS 14:00 -Blood Culture (Adults Only), peripheral from different site, or from device/port/PICC jml1 etc. if present complete. 14:01 BLOOD CULTURES Ordered. EDMS 15:19 ketorolac 15 mg IVP once ordered. dt4 15:22 Clindamycin 600 mg IVPB once over 30 mins; dilute in 50mL of NS or D5W ordered. dt4 16:13 oxyCODONE-acetaminophen 5 mg-325 mg 1 tabs PO once ordered. dt4 16:42 Metoclopramide 20 mg IV at 80 mg/hr once over 15 mins ordered. dt4 16:42 diphenhydrAMINE 25 mg IVP once ordered. dt4 18:55 [facility] Payment Agreement was scanned into [employer] and attached to record. luzmaria 18:55 Financial registration complete. luzmaria 09/24 09:11 T-Sheet-- Draft Copy was scanned into [employer] and attached to record. gb 09:12 Radiology Report was scanned into [employer] and attached to record. gb Administered Medications: 09/23 14:01 Drug: NS 0.9% 1000 ml [sodium chloride 0.9 % intravenous solution] Route: IV; Rate: mcp bolus; Site: right antecubital; 14:01 Drug: morphine 4 mg [morphine 4 mg/mL intravenous cartridge (1 mL)] Route: IVP; Site: mcp right antecubital; 15:38 Drug: ketorolac 15 mg [ketorolac 30 mg/mL (1 mL) injection solution (0.5 mL)] Route: mcp IVP; Site: right antecubital; 15:38 Drug: Clindamycin 600 mg [clindamycin 600 mg/50 mL in 5 % dextrose intravenous mcp piggyback] Route: IVPB; Infused Over: 30 mins; Site: right antecubital; 16:24 Drug: oxyCODONE-acetaminophen 1 tabs [oxycodone-acetaminophen 5 mg-325 mg tablet (1 mk4 tabs)] Route: PO; 16:59 Drug: Metoclopramide 20 mg [metoclopramide 5 mg/mL injection solution] Route: IV; Rate: mcp 80 mg/hr; Infused Over: 15 mins; Site: right antecubital; 17:26 Follow up: Pain 5/10 Adult; IV Status: Completed infusion; IV Intake: 17ml mcp 16:59 Drug: diphenhydrAMINE 25 mg [diphenhydramine 50 mg/mL injection solution (0.5 mL)] [facility] Route: IVP; Site: right antecubital; Signatures: Dispatcher [employer] Mar Kunz RN RN mcp Barnhardt, Gloria, Debra Coe RN RN jo3 Traver, Jamie jml1 King, Margaret, RN RN mk4 Marielena Garduno, PAJennifer PACharla Davis The chart was reviewed and I authenticate all verbal orders and agree with the evaluation and treatment provided.Attachments: 18:55 [facility] Payment Agreement jared 09/24 09:11 T-Sheet-- Draft Copy gb Chart Complete MTDD
== END 2016-09-23 17:57 | disposition home or self-care (01) ==
LOC: M ED 12:35
DX: R51 Headache (principal); L03.211 Cellulitis of face; I10 Essential (primary) hypertension; E27.9 Disorder of adrenal gland, unspecified; Z90.49 Acquired absence of other specified parts of digestive tract; Z90.89 Acquired absence of other organs; Z79.1 Long term (current) use of non-steroidal anti-inflammatories (NSAID); Z79.899 Other long term (current) drug therapy; Z88.1 Allergy status to other antibiotic agents; Z88.5 Allergy status to narcotic agent; Z88.2 Allergy status to sulfonamides; Z91.030 Bee allergy status
CPT/HCPCS: 36415; 70450; 70491; 80048; 83605; 85025; 85652; 86140; 87040; 96365; 96375; 99284; J1200; J1885; J2765; Q9967

== ENCOUNTER → 2016-10-15 | Outpatient (REF) | payer OTHER ==
[2016-10-15 12:08] LABS: LUTEINIZING HORMONE 1.5 mIU/mL
[2016-10-15 12:09] LABS: FOLLICLE STIMULATING HORMONE 2.5 mIU/mL; FREE T4 1.12 NG/DL (0.76-1.46)
== END ==
LOC: M SFHCPLAZ 09:07
PROVIDERS: ATTEND Nurse Practitioner Family
DX: E28.2 Polycystic ovarian syndrome (principal); I10 Essential (primary) hypertension

== ENCOUNTER → 2016-11-25 | Outpatient (CLI) | payer OTHER ==
--- NOTE | 2016-11-25 16:34 | REP ---
Pelvic ultrasound including transabdominal, endovaginal and Doppler ultrasound assessment: Comparison is 04/14/2014. The bladder is adequately distended. The uterus is retroflexed. The uterus is normal size measuring 7.4 x 4.7 x 4.7 cm. The myometrium is unremarkable. The endometrium measures 7.6 mm and is not thickened. There is a right ovarian 1.4 cm follicle. Including this follicle the right ovary is normal size measuring 3.0 x 2.1 x 3.1 cm. The left ovary is normal size measuring 3.1 x 1.8 x 3.0 cm. There is no dominant left ovarian mass or cyst. There is vascular flow in both ovaries with the Doppler resistive index of the intraparenchymal arteries on the right measuring 0.57, left 0.56. There is no free fluid in the pelvis. Nabothian cysts are incidentally noted in the cervix. Impression: Retroflexed uterus. Small right ovarian follicle. There is vascular flow in both ovaries. Otherwise, essentially negative pelvic ultrasound. Signed by Marvin Nunez MD 11/25/2016 04:24 P
== END ==
LOC: M RAD 15:23
PROVIDERS: ATTEND Obstetrics & Gynecology
DX: N92.0 Excessive and frequent menstruation with regular cycle (principal); N85.4 Malposition of uterus

== ENCOUNTER → 2016-12-06 | Outpatient (REF) | payer OTHER ==
[2016-12-07 12:23] LABS: ALBUMIN 3.6 GM/DL (3.2-5.2); ALBUMIN/GLOBULIN RATIO 1.09 (1.00-1.93); ALKALINE PHOSPHATASE 58 U/L (45-117); ALT/SGPT 25 U/L (12-78); ANION GAP 8 MEQ/L (8-16); AST/SGOT 13 U/L (15-37); BILIRUBIN,TOTAL 0.3 MG/DL (0.2-1.0); BLOOD UREA NITROGEN 12 MG/DL (7-18); CALCIUM LEVEL 9.1 MG/DL (8.5-10.1); CARBON DIOXIDE LEVEL 26 MEQ/L (21-32); CHLORIDE LEVEL 107 MEQ/L (98-107); CREATININE FOR GFR 0.75 MG/DL (0.55-1.02); GLOMERULAR FILTRATION RATE > 60.0 (>60); GLUCOSE, FASTING 104 MG/DL (70-105); SODIUM LEVEL 141 MEQ/L (136-145); TOTAL PROTEIN 6.9 GM/DL (6.4-8.2); URIC ACID 4.9 MG/DL (2.6-6.0)
== END ==
LOC: M SFHCLERA 17:43
PROVIDERS: ATTEND Nurse Practitioner Family
DX: M25.471 Effusion, right ankle (principal)

== ENCOUNTER → 2016-12-06 | Outpatient (CLI) | payer OTHER ==
--- NOTE | 2016-12-07 07:35 | REP ---
Right ankle series: Five views. History: Pain and swelling. Findings: Five views of the right ankle demonstrate plantar calcaneal spurring. Ankle mortise is intact. Mild anteromedial soft tissue swelling is seen. No fracture is noted. Impression: No fracture noted. Signed by Hermilo Whitley MD 12/06/2016 06:30 P
== END ==
LOC: M LRY 17:43
PROVIDERS: ATTEND Nurse Practitioner Family
DX: M25.471 Effusion, right ankle (principal)

== ENCOUNTER → 2016-12-16 | Outpatient (REF) | payer OTHER ==
[~2016-12-16] MED LIST: AMLO5TAB2 PO; CARV6.25 PO; CHLO125TA PO; LABE20TAB OR; LOSA100T36 PO; NECO1TAB9 PO; SPIR25TA2 PO
[2016-12-16 16:38] LABS: BASO % 0.4 % (0.0-1.0); EOS # 0.1 K/mm3 (0.0-0.50); EOS % 0.8 % (0.0-3.0); LARGE UNSTAINED CELL # 0.3 K/mm3 (0.0-0.4); LARGE UNSTAINED CELL % 2.4 % (0.0-4.0); LYMPH # 3.1 K/mm3 (1.5-4.5); LYMPH % 29.2 % (24.0-44.0); MEAN CORPUSCULAR HEMOGLOBIN 32.3 pg (27.0-33.0); MEAN CORPUSCULAR HGB CONC 35.1 g/dl (32.0-36.5); MEAN CORPUSCULAR VOLUME 92.2 fl (80.0-96.0); MONO # 0.5 K/mm3 (0.0-0.8); MONO % 4.8 % (0.0-5.0); NEUTROPHILS # 6.7 K/mm3 (1.8-7.7); NEUTROPHILS % 62.4 % (36.0-66.0); PLATELET COUNT, AUTOMATED 308 k/mm3 (150-450); WHITE BLOOD COUNT 10.7 K/mm3 (4.0-10.0)
== END ==
LOC: M SFHCPLAZ 14:30
PROVIDERS: ATTEND Nurse Practitioner Family
DX: N92.0 Excessive and frequent menstruation with regular cycle (principal)

== ENCOUNTER 2016-12-29 12:21 | Day surgery (SDC) | payer OTHER ==
[~2016-12-29] VITALS: Ht 170.2 cm; Wt 102.1 kg
[2016-12-29] MEDS ORDERED: PYRI200T5 PO (13:13)
[2016-12-29 13:17] LABS: CONTROL LINE HCG INT CTR LINE PRESENT
[2016-12-29] MEDS ORDERED: LR 1,000 ML IV ONE ×2 (14:00→18:15)
[2016-12-29] MEDS ORDERED: MIDAZOLAM INJ 2 MG/2 ML VIAL (J2250) As Ordered ONE (15:07)
[2016-12-29] MEDS ORDERED: ePHEDrine SULFATE 25 MG/5 ML(5MG/ML) SYRINGE As Ordered ONE ×2 (15:07→15:16)
[2016-12-29] MEDS ORDERED: BUPIVACAINE HCL 0.25% 30 ML VIAL As Ordered ONE (15:07)
[2016-12-29] MEDS ORDERED: METHYLENE BLUE 0.5% (5MG/ML) 10 ML AMP (PROVAYBLUE)(Q9968 PER 1MG) As Ordered ONE (15:07)
[2016-12-29] MEDS ORDERED: HYDROmorphone HCL 2 MG/ML 1ML VIAL (J1170) As Ordered ONE (15:07)
[2016-12-29] MEDS ORDERED: fentaNYL 250 MCG/5 ML INJECTION (J3010) As Ordered ONE (15:07)
[2016-12-29] MEDS ORDERED: METOCLOPRAMIDE INJ 10MG/2ML VIAL (J2765) As Ordered ONE (15:08)
[2016-12-29] MEDS ORDERED: GLYCOPYRROLATE INJ 0.2 MG/ML 2 ML VIAL As Ordered ONE (15:08)
[2016-12-29] MEDS ORDERED: PROPOFOL 200 MG/20 ML VIAL As Ordered ONE (15:08)
[2016-12-29] MEDS ORDERED: NEOSTIGMINE 1MG/ML 5 ML SYRINGE (J2710) As Ordered ONE (15:08)
[2016-12-29] MEDS ORDERED: ROCURONIUM BROMIDE 50 MG/5 ML VIAL As Ordered ONE (15:08)
[2016-12-29] MEDS ORDERED: ONDANSETRON 4MG/2ML VIAL (J2405) As Ordered ONE (15:08)
[2016-12-29] MEDS ORDERED: KETOROLAC 60 MG/2 ML VIAL (J1885) As Ordered ONE (15:08)
[2016-12-29] MEDS ORDERED: LIDOCAINE 2% INJ 100 MG/5 ML SDV (FOR ANES.) As Ordered ONE (15:08)
[2016-12-29] MEDS ORDERED: fentaNYL 100 MCG/2 ML INJECTION (J3010) As Ordered ONE (17:57)
[2016-12-29] MEDS: fentaNYL 100 MCG/2 ML INJECTION (J3010) IV PRN ×4 (18:03→18:52)
[2016-12-29] MEDS ORDERED: MORPHINE 4 MG/ML 1ML SYRINGE IV PRN (18:15)
[2016-12-29] MEDS ORDERED: LR 1,000 ML IV SCH (18:15)
[2016-12-29] MEDS ORDERED: PERCOCET 5MG/325MG TAB PO PRN (18:15)
[2016-12-29 20:10] VITALS: BP 147/76
[2016-12-29 20:40] VITALS: BP 148/92
[2016-12-29] MEDS ORDERED: LOSARTAN 50 MG TAB PO SCH (21:00)
[2016-12-29 21:10] VITALS: BP 160/90
[2016-12-29] MEDS: LR 1,000 ML IV SCH (21:30)
[2016-12-29 22:10] VITALS: BP 167/88
[2016-12-29] MEDS: CARVedilol 3.125 MG TAB PO SCH (22:53)
[2016-12-29 23:10] VITALS: BP 180/94
[2016-12-29] MEDS: KETOROLAC 30 MG/ML VIAL (J1885) IV SCH (23:32)
[2016-12-30 00:15] VITALS: BP 148/82
[2016-12-30 01:15] VITALS: BP 132/75
[2016-12-30] MEDS: LR 1,000 ML IV SCH (02:15)
[2016-12-30] MEDS: PERCOCET 5MG/325MG TAB PO PRN ×3 (02:28→10:46)
[2016-12-30 04:00] VITALS: BP 139/69
[2016-12-30] MEDS: KETOROLAC 30 MG/ML VIAL (J1885) IV SCH ×2 (05:40→12:01)
[2016-12-30 07:21] LABS: MEAN CORPUSCULAR HEMOGLOBIN 32.2 pg (27.0-33.0); MEAN CORPUSCULAR HGB CONC 34.5 g/dl (32.0-36.5); MEAN CORPUSCULAR VOLUME 93.2 fl (80.0-96.0); RED CELL DISTRIBUTION WIDTH 12.2 % (11.5-14.5); WHITE BLOOD COUNT 13.3 K/mm3 (4.0-10.0)
[2016-12-30 08:00] VITALS: BP 141/75
--- NOTE | 2016-12-30 08:08 | RO ---
DATE OF PROCEDURE: 12/29/2016 PREOPERATIVE DIAGNOSIS: Abnormal uterine bleed. POSTOPERATIVE DIAGNOSIS: Abnormal uterine bleeding. PROCEDURES PERFORMED: 1. Robotic assisted laparoscopic hysterectomy. 2. Bilateral salpingectomy. 3. Cystoscopy. SURGEON: Cande De Gumzan MD PEDIATRIC LICENSED PRACTICAL NURSE: Rossana Ledesma NP ANESTHESIA: General endotracheal anesthesia. ESTIMATED BLOOD LOSS: 100 mL. INTRAVENOUS FLUIDS: 2500 mL of lactated Ringer solution. URINE OUTPUT: 150 mL. SPECIMENS: Cervix, uterus, bilateral fallopian tube. PREOPERATIVE ANTIBIOTICS: 2 grams of Ancef. INFECTION CLASSIFICATION: 2. OPERATIVE FINDINGS: Patient with normal appearing uterus and bilateral adnexa. CYSTOSCOPIC FINDINGS: Revealed normal bladder mucosa. No foreign bodies were visualized. Bilateral ureteral jets were observed. DESCRIPTION OF OPERATION: After informed consent was obtained and written content was reviewed, the patient was then taken to the operating room where she was placed under general endotracheal anesthesia. She was then placed in lithotomy position and was prepped and draped in a normal sterile fashion. A time-out in the operating room was then performed identifying the patient, the procedure to be performed, as well as drug allergies. A speculum was then placed revealing the cervix. The anterior and posterior aspects of the cervix were stitched with #0 Vicryl. The uterus was then sounded to 8 cm. A large niiuare uterine manipulator was then advanced through the cervical os for means to manipulate the uterus. The uterine balloon was insufflated with 10 mL of air. The cervical cap was then placed over the cervix. The vaginal sleeve was advanced down to the vagina. Instruments were removed from patient's vagina. Wynn catheter was then placed and set to gravity. Gloves were changed and attention was turned to the patient's abdomen, where a Veress needle was placed through umbilicus. A pneumoperitoneum was then obtained with CO2 gas. The supraumbilical area was then infused with 0.25% Marcaine. An incision was then made in this area and a 12 mm trocar and sleeve was advanced through this incision. The laparoscope was then replaced revealing intra-abdominal placement. Two lateral ports left and to the right of the umbilicus were placed. Each of these ports were infused with 0.25% Marcaine. Incisions were made in each of these areas. 8 mm trocar and sleeves were advanced through each one of these incisions under direct visualization. A fourth trocar was placed in the left side of the patient's abdomen. This area was also infused with 0.25% Marcaine. An incision was made in this area and another 8 mm trocar and sleeve was advanced through this incision under direct visualization. Next, da Tracie was then advanced to the patient's table and it was docked utilizing a camera arm and two operative arms. Utilizing da Tracie equipment, bipolar cautery, bilateral salpingectomy was performed. The right fallopian tube was placed on traction. The mesosalpinx was then cauterized and ligated with good hemostasis noted. It was transected from the uterus. Specimen was brought out through the incision and in a similar fashion the left fallopian tube was placed on traction. Dissection was then performed along the mesosalpinx and the fallopian was transected from the uterus. Specimen was then brought out through incision. Next, the utero-ovarian ligaments were cauterized and ligated with good hemostasis noted bilaterally. The round ligaments on both sides were then cauterized and ligated with good hemostasis noted. The anterior lip of the broad ligaments were then dissected along the bladder creating a bladder flap. The remainder of the broad ligaments and cardinal ligaments were then cauterized and ligated with good hemostasis noted. The uterine artery was then skeletonized bilaterally and cauterized and ligated with good hemostasis noted. Next, anterior and posterior colpotomies were made and the uterus was removed vaginally. Good hemostasis was noted. Next, the vaginal cuff was then closed using #2-0 V-Loc system in a running fashion. The surgical sites were inspected and noted to be hemostatic. Aravind was applied over the surgical santana. A cystoscopy was performed. The Wynn catheter was removed and the cystoscope was advanced to the urethra. Cystoscopy was performed revealing normal bladder mucosal and bilateral jets. The bladder was then drained. Gloves were changed. Attention was then turned to the patient's abdomen where all four skin incisions were closed with #4-0 Monocryl and was dressed with Dermabond. The patient was then taken out of lithotomy position, was awakened from general anesthesia and taken to recovery in stable condition. Rossana Ledesma, my back office medical assistant, played an essential role in this operation. She assisted with identification of vital structures, manipulation of tissue, port placement as well as skin closure. Counts were correct. STEFANIE
[2016-12-30 08:44] VITALS: BP 141/75
[2016-12-30] MEDS: CARVedilol 3.125 MG TAB PO SCH (08:44)
[2016-12-30] MEDS ORDERED: SPIRONOLACTONE 12.5MG PER 1/2 TABLET PO SCH (09:00)
[2016-12-30] MEDS ORDERED: CHLORTHALIDONE 12.5MG PER 1/2 TABLET PO SCH (09:00)
[2016-12-30 12:00] VITALS: BP 144/77
[2016-12-30] MEDS ORDERED: OXYC1TAB23 PO (13:47)
== END 2016-12-30 14:30 | disposition home or self-care (01) ==
LOC: M SDC 12:21 → M PED 20:00 → M SDC 12-30 14:30
PROVIDERS: ATTEND Obstetrics & Gynecology
DX: N93.9 Abnormal uterine and vaginal bleeding, unspecified (principal); I10 Essential (primary) hypertension; G47.33 Obstructive sleep apnea (adult) (pediatric); N80.9 Endometriosis, unspecified; J45.909 Unspecified asthma, uncomplicated; E28.2 Polycystic ovarian syndrome; Z88.5 Allergy status to narcotic agent; Z88.1 Allergy status to other antibiotic agents; Z88.8 Allergy status to other drugs, medicaments and biological substances; Z91.030 Bee allergy status; Z91.018 Allergy to other foods; Z87.891 Personal history of nicotine dependence
CPT/HCPCS: 36415; 58571; 84703; 85027; 86850; 86900; 86901; 88309; 96374; 96376; A6024; J0690; J1170; J1885; J2250; J2405; J2710; J2765; J3010

== ENCOUNTER 2017-05-30 15:20 | Emergency (ER) | payer OTHER ==
[~2017-05-30] VITALS: Ht 171.4 cm; Wt 106.8 kg
[2017-05-30 15:20] VITALS: BP 166/95
[~2017-05-30 15:20] MED LIST changes: +OXYC1TAB23 PO; +PYRI1TAB5 PO
[2017-05-30] MEDS ORDERED: NAPR500T PO (15:50)
== END 2017-05-30 16:09 | disposition home or self-care (01) ==
LOC: M ED 15:20
DX: M25.561 Pain in right knee (principal); I10 Essential (primary) hypertension; J45.909 Unspecified asthma, uncomplicated; Z79.899 Other long term (current) drug therapy; Z91.018 Allergy to other foods; Z88.5 Allergy status to narcotic agent; Z88.8 Allergy status to other drugs, medicaments and biological substances; Z91.030 Bee allergy status; Z91.040 Latex allergy status

== ENCOUNTER → 2017-08-18 | Outpatient (REF) | payer OTHER ==
[2017-08-25 08:07] LABS: URINE METANEPHR/CREAT RATIO 0.3 (0.0-1.0); URINE METANEPHRINES RANDOM 29 ug/L (Undefined); URINE NORMETANEPHRINES RANDOM 127 ug/L (Undefined)
== END ==
LOC: M SFHCPLAZ 11:06
DX: E27.9 Disorder of adrenal gland, unspecified (principal)
CPT/HCPCS: 84585

== ENCOUNTER → 2017-09-15 | Outpatient (REF) | payer OTHER | LOC: M SFHCPLAZ 11:47 | DX: L57.0 Actinic keratosis (principal); D23.9 Other benign neoplasm of skin, unspecified | CPT/HCPCS: 88305 ==

== ENCOUNTER → 2018-05-09 | Outpatient (REF) | payer OTHER | LOC: M SFHCLERA 11:18 | DX: R30.0 Dysuria (principal) ==

== ENCOUNTER → 2018-09-05 | Outpatient (CLI) | payer OTHER ==
[~2018-09-05] MED LIST changes: -AMLO5TAB2 PO; +AMLO5TAB6 PO; -LOSA100T36 PO; +LOSA100T50 PO; +NAPR-50 PO; +NECO1TAB2 PO; -NECO1TAB9 PO; +SPIR-10 PO; -SPIR25TA2 PO
--- NOTE | 2018-09-05 20:41 | REP ---
CT ABDOMEN WITHOUT CONTRAST: 09/05/2018. Comparison: 02/15/2017, 04/16/[address] Clinical history: Left adrenal adenoma, follow-up. Technique: No oral or IV contrast given with coronal and sagittal reconstructions obtained after thin section axial images through the abdomen. Findings: Lung bases show some minimal curvilinear fibrotic change medial basal segment of the left lower lobe unchanged. They are otherwise clear. Heart not enlarged. No pericardial thickening or effusion and no hiatal hernia. There are mildly prominent up to 21 cm vertical diameter in the midclavicular line. Left lobe mildly prominent. There are clips from prior cholecystectomy. No biliary dilatation, hepatic mass, calcification, cyst or adjacent ascites. No splenomegaly or focal splenic lesion. I see no hiatal hernia. Right adrenal gland is normal. Left adrenal gland again shows a sub-centimeter hypodense nodule about 8.7 mm, unchanged from studies dating back 2 1/2 years. This low attenuation is consistent with adrenal adenoma, benign finding. Pancreas, kidneys, small bowel loops and colon grossly intact. A few tiny calcifications in the aortic wall on this right lateral margin are noted. Small bowel loops fluid-filled without air-fluid levels dilatation or inflammatory change. The bony lumbar and lower thoracic spine were grossly intact as are the ribs. Impression: 1. Stable approximately 9 mm adrenal adenoma in the left adrenal gland, unchanged for about 2 1/2 years. No new finding. Kidneys, right adrenal gland, pancreas and spleen are unremarkable. 2. Mild prominence of the liver without fatty change or mass. Prior cholecystectomy. No other finding. Electronically Signed by Tae Staton MD 09/05/2018 08:54 P
== END ==
LOC: M RAD 12:30
PROVIDERS: ATTEND Internal Medicine Cardiovascular Disease
DX: D35.02 Benign neoplasm of left adrenal gland (principal); Z90.49 Acquired absence of other specified parts of digestive tract

== ENCOUNTER 2019-02-23 17:37 | Emergency (ER) | payer OTHER ==
[~2019-02-23] VITALS: Ht 172.7 cm; Wt 102.4 kg
[~2019-02-23 17:37] MED LIST changes: -NAPR-50 PO; +NAPR-837 PO
[2019-02-23] MEDS ORDERED: MACR100C43 PO (18:20)
[2019-02-23] MEDS ORDERED: PYRI1TAB5 PO (18:20)
[2019-02-23] MEDS ORDERED: CHLO25TA PO (18:20)
[2019-02-23 18:43] LABS: BASO # 0.1 10^3/uL (0.0-0.2); BASO % 0.6 % (0.0-1.0); EOS # 0.2 10^3/uL (0.0-0.50); EOS % 2.1 % (0.0-3.0); HEMATOCRIT 45.2 % (36.0-47.0); HEMOGLOBIN 15.5 g/dl (12.0-15.5); LYMPH # 2.6 10^3/uL (1.5-4.5); LYMPH % 30.9 % (24.0-44.0); MEAN CORPUSCULAR HGB CONC 34.3 g/dl (32.0-36.5); MEAN CORPUSCULAR VOLUME 93.4 fl (80.0-96.0); MONO # 0.6 10^3/uL (0.0-0.8); NEUTROPHILS % 59.3 % (36.0-66.0); PLATELET COUNT, AUTOMATED 308 10^3/uL (150-450); RED BLOOD COUNT 4.84 10^6/uL (4.00-5.40); WHITE BLOOD COUNT 8.5 10^3/uL (4.0-10.0)
[2019-02-23 18:51] LABS: APPEARANCE, URINE CLEAR (CLEAR); BACTERIA, URINE AUTO 1+ (NEGATIVE); BILIRUBIN, URINE AUTO NEGATIVE (NEGATIVE); BLOOD, URINE BLOOD NEGATIVE (NEGATIVE); COLOR, URINE AMBER (YELLOW); GLUCOSE, URINE (UA) AUTO NEGATIVE (NEGATIVE); KETONE, URINE AUTO NEGATIVE (NEGATIVE); LEUKOCYTE ESTERASE, URINE AUTO NEGATIVE (NEGATIVE); MUCUS, URINE SMALL (NEGATIVE); NITRITE, URINE AUTO POSITIVE (NEGATIVE); PROTEIN, URINE AUTO NEGATIVE (NEGATIVE); RBC, URINE AUTO 2 /HPF (0-3); SPECIFIC GRAVITY URINE AUTO 1.017 (1.002-1.035); SQUAMOUS EPITHELIAL CELL UR AU 1 /HPF (0-6); WBC, URINE AUTO 4 /HPF (0-3)
[2019-02-23 19:03] LABS: BLOOD UREA NITROGEN 15 MG/DL (7-18); CALCIUM LEVEL 9.1 MG/DL (8.5-10.1); CARBON DIOXIDE LEVEL 30 MEQ/L (21-32); CHLORIDE LEVEL 102 MEQ/L (98-107); CREATININE FOR GFR 0.87 MG/DL (0.55-1.30); GLOMERULAR FILTRATION RATE > 60.0 (>60); GLUCOSE, FASTING 91 MG/DL (70-100); POTASSIUM SERUM 3.7 MEQ/L (3.5-5.1); SODIUM LEVEL 138 MEQ/L (136-145)
--- NOTE | 2019-02-23 19:23 | REPVR ---
EXAM: CT Abdomen and Pelvis Without Contrast EXAM DATE/TIME: 02/23/2019 6:25 PM CLINICAL HISTORY: 38 years old, female; Abdominal pain; Flank; Right; Additional info: Right flank pain TECHNIQUE: Imaging protocol: Axial computed tomography images of the abdomen and pelvis without contrast. Coronal and sagittal reformatted images were created and reviewed. Radiation optimization: All CT scans at this facility use at least one of these dose optimization techniques: automated exposure control; mA and/or kV adjustment per patient size (includes targeted exams where dose is matched to clinical indication); or iterative reconstruction. COMPARISON: CT ABD PELVIS W/O FOL BY WIT 02/15/2017 3:06 PM FINDINGS: Lungs: An area of parenchymal scarring in the left lower lobe, as before. Trace subsegmental atelectasis versus scarring in the lingula and right middle lobe. Mediastinum: Small hiatal hernia. Liver: Normal. No mass. Gallbladder and bile ducts: Cholecystectomy clips in the gallbladder fossa. Pancreas: Normal. No ductal dilation. Spleen: Normal. No splenomegaly. Adrenals: A 9 mm left adrenal adenoma is again demonstrated. Kidneys and ureters: Normal. No hydronephrosis. Stomach and bowel: A moderate amount of stool in the colon. No obstruction. Appendix: A normal appendix is seen. Intraperitoneal space: Normal. No free air. No significant fluid collection. Vasculature: Normal. No abdominal aortic aneurysm. Lymph nodes: Normal. No pathologically enlarged lymph nodes. Bladder: Unremarkable as visualized. Reproductive: The uterus is surgically absent. A septated cyst versus two separate adjacent right ovarian cysts collectively measuring 5.8 cm in craniocaudal dimension. In this age group, probable interval resolution of a previously seen right ovarian cyst with new cyst formation. A previously seen left ovarian cyst has resolved. Bones/joints: No acute fracture. No dislocation. Several small sclerotic lesions are seen in the bony skeleton which are felt to represent bone islands. Soft tissues: There is a small fat containing umbilical hernia. IMPRESSION: 1. A septated cyst versus two separate adjacent right ovarian cysts collectively measuring 5.8 cm in craniocaudal dimension. Pelvic ultrasound is recommended for further evaluation. 2. No evidence of uropathy. Electronically signed by: Davina Constantino On 02/23/2019 19:23:15 PM
[2019-02-23 20:14] VITALS: BP 148/82
[2019-02-23] MEDS ORDERED: KETOROLAC 60 MG/2 ML VIAL (J1885) IM ONE (20:45)
[2019-02-23] MEDS ORDERED: KETO10TAB PO (21:13)
--- NOTE | 2019-02-26 13:24 | ED PDOC ---
Post-Departure Follow-Up dr ortega faxed formal report of ct abd/p for fu Parul Do MD Feb 26, 2019 13:24
== END 2019-02-23 21:22 | disposition home or self-care (01) ==
LOC: M ED 17:37
DX: N39.0 Urinary tract infection, site not specified (principal); N83.201 Unspecified ovarian cyst, right side; I10 Essential (primary) hypertension; Z87.440 Personal history of urinary (tract) infections; G47.30 Sleep apnea, unspecified; Z87.42 Personal history of other diseases of the female genital tract; Z88.5 Allergy status to narcotic agent; Z88.0 Allergy status to penicillin; Z88.1 Allergy status to other antibiotic agents; Z79.899 Other long term (current) drug therapy; Z79.2 Long term (current) use of antibiotics
CPT/HCPCS: 74176; 80048; 81001; 85025; 96372; 99283; J1885

== ENCOUNTER 2019-02-26 19:35 | Emergency (ER) | payer OTHER ==
[~2019-02-26] VITALS: Ht 170.2 cm; Wt 100.0 kg
[~2019-02-26 19:35] MED LIST changes: +CHLO25TA PO; +KETO10TAB PO; +MACR100C43 PO
--- NOTE | 2019-02-27 01:30 | REPVR ---
EXAM: US Duplex Left Lower Extremity Veins, Limited EXAM DATE/TIME: 02/27/2019 12:46 AM CLINICAL HISTORY: 38 years old, female; Edema, localized; Lower extremity, left; Additional info: RO dvt TECHNIQUE: Imaging protocol: Real-time Duplex ultrasound of the Left Lower Extremity with 2-D rogers scale, color Doppler flow and spectral waveform analysis. Limited exam focused on the left lower extremity veins. COMPARISON: No relevant prior studies available. FINDINGS: Left deep veins: Unremarkable. The common femoral, femoral, proximal profunda femoral and popliteal veins are patent without thrombus. Normal Doppler waveforms. Normal compressibility and/or augmentation response. Left superficial veins: Unremarkable. Saphenofemoral junction is patent without thrombus. Soft tissues: Unremarkable. IMPRESSION: No evidence of deep vein thrombosis in the left thigh. Electronically signed by: Jass Hutchins On 02/27/2019 01:29:53 AM
[2019-02-27 01:59] VITALS: BP 170/90
--- NOTE | 2019-02-27 09:47 | REP ---
Clinical: Left foot swelling. Technique: AP, lateral, bilateral oblique views left foot . Findings: The osseous structures and joint spaces are intact and normal. There is no evidence for acute fracture or dislocation. Surrounding soft tissues are unremarkable. No subcutaneous emphysema or radiodense foreign body. Heel spur. Impression: No acute fracture or dislocation. Electronically Signed by Willy Chung MD 02/27/2019 09:39 A
== END 2019-02-27 02:00 | disposition home or self-care (01) ==
LOC: M ED 19:35
DX: R22.42 Localized swelling, mass and lump, left lower limb (principal); I10 Essential (primary) hypertension; J45.909 Unspecified asthma, uncomplicated; N83.209 Unspecified ovarian cyst, unspecified side; Z79.899 Other long term (current) drug therapy; Z88.0 Allergy status to penicillin; Z88.1 Allergy status to other antibiotic agents; Z88.5 Allergy status to narcotic agent; Z88.6 Allergy status to analgesic agent

== ENCOUNTER → 2019-02-28 | Outpatient (REF) | payer OTHER ==
[2019-02-28 18:54] LABS: HEMOGLOBIN A1c 5.6 %
[2019-03-03 00:06] LABS: ANA (HEP2) Negative (.)
== END ==
LOC: M SFHCPLAZ 15:45
PROVIDERS: ATTEND Family Medicine
DX: I80.02 Phlebitis and thrombophlebitis of superficial vessels of left lower extremity (principal); Z13.1 Encounter for screening for diabetes mellitus

== ENCOUNTER → 2019-03-09 | Outpatient (REF) | payer OTHER ==
[2019-03-12 10:48] LABS: HEPATITIS A ANTIBODY IGM NEGATIVE (NEGATIVE); HEPATITIS B CORE ANTIBODY IGM NEGATIVE (NEGATIVE); HEPATITIS B SURFACE ANTIGEN NEGATIVE (NEGATIVE); HEPATITIS C VIRUS ABY INDEX 0.1 INDEX (<0.8)
== END ==
LOC: M SFHCPLAZ 15:12
PROVIDERS: ATTEND Family Medicine
DX: Z71.1 Person with feared health complaint in whom no diagnosis is made (principal)

== ENCOUNTER → 2019-05-04 | Outpatient (REF) | payer OTHER | LOC: M SFHCPLAZ 14:11 | PROVIDERS: ATTEND Family Medicine | DX: I15.2 Hypertension secondary to endocrine disorders (principal) ==

== ENCOUNTER → 2019-05-21 | Outpatient (CLI) | payer OTHER ==
[2019-05-26 00:06] LABS: VANILLYLMANDELIC ACID,URINE 1.9 mg/L (Undefined)
[2019-05-30 11:09] LABS: ALDOSTERONE 14.4 ng/dL (0.0-30.0); RENIN LEVEL 1.143 ng/mL/hr (0.167-5.380)
== END ==
LOC: M LAB 07:49
PROVIDERS: ATTEND Family Medicine
DX: I15.2 Hypertension secondary to endocrine disorders (principal)

== ENCOUNTER → 2019-09-17 | Outpatient (CLI) | payer OTHER ==
[2019-09-17 18:37] LABS: FREE T4 0.95 NG/DL (0.76-1.46); THYROGLOBULIN ANTIBODY < 15.0 U/ML (<60.0); THYROID PEROXIDASE ANTIBODY < 28.0 U/ML (<60.0)
== END ==
LOC: M PLALAB 14:43
PROVIDERS: ATTEND Family Medicine
DX: E07.89 Other specified disorders of thyroid (principal)

== ENCOUNTER → 2019-09-21 | Outpatient (REF) | payer OTHER | LOC: M SFHCPLAZ 10:31 | PROVIDERS: ATTEND Family Medicine | DX: D49.2 Neoplasm of unspecified behavior of bone, soft tissue, and skin (principal) ==

== ENCOUNTER 2020-06-05 07:18 | Emergency (ER) | payer BC, OTHER ==
[~2020-06-05] VITALS: Ht 172.7 cm; Wt 102.6 kg
[~2020-06-05 07:18] MED LIST changes: +AMLO1TAB24 PO; -AMLO5TAB6 PO
[2020-06-05] MEDS ORDERED: diphenhydrAMINE 50MG/ML VIAL (J1200) IV STA (07:39)
[2020-06-05] MEDS ORDERED: NS 1,000 ML IV ONE (07:45)
[2020-06-05] MEDS ORDERED: METOCLOPRAMIDE INJ 10MG/2ML VIAL (J2765 PER 1) IV ONE (07:45)
--- NOTE | 2020-06-05 08:32 | REPVR ---
PROCEDURE INFORMATION: Exam: CT Head Without Contrast Exam date and time: 06/05/2020 8:20 AM Age: 39 years old Clinical indication: Pain; Headache TECHNIQUE: Imaging protocol: Computed tomography of the head without contrast. Radiation optimization: All CT scans at this facility use at least one of these dose optimization techniques: automated exposure control; mA and/or kV adjustment per patient size (includes targeted exams where dose is matched to clinical indication); or iterative reconstruction. COMPARISON: CT Head without contrast 09/23/2016 2:45 PM FINDINGS: Brain: Normal. No hemorrhage. Unremarkable white matter. No mass effect. Cerebral ventricles: No ventriculomegaly. Bones/joints: Unremarkable. No acute fracture. Paranasal sinuses: Visualized sinuses are unremarkable. No fluid levels. Mastoid air cells: Visualized mastoid air cells are well aerated. Soft tissues: Unremarkable. IMPRESSION: No acute intracranial abnormality. Electronically signed by: Constantine Buchanan On 06/05/2020 08:32:13 AM
[2020-06-05] MEDS ORDERED: KETOROLAC 30 MG/ML 1ML VIAL IV ONE (09:15)
[2020-06-05] MEDS ORDERED: SPIRONOLACTONE 25 MG TAB PO STA (09:28)
[2020-06-05] MEDS ORDERED: CHLORTHALIDONE 25 MG TAB PO ONE (09:30)
[2020-06-05] MEDS ORDERED: CARVedilol 6.25 MG TAB PO ONE (09:30)
[2020-06-05] MEDS ORDERED: PROMETHAZINE INJ 25 MG/ML VIAL (J2550) IV ONE (09:30)
[2020-06-05 10:49] VITALS: BP 170/110
[2020-06-05 12:33] VITALS: BP 176/88
[2020-06-05] MEDS ORDERED: CARV6.25 PO (12:37)
[2020-06-05] MEDS ORDERED: CHLO25TA PO (12:37)
[2020-06-05] MEDS ORDERED: LOSA100T50 PO (12:38)
[2020-06-05] MEDS ORDERED: SPIR-10 PO (12:38)
--- NOTE | 2020-06-05 19:25 | ECGEPIP ---
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
== END 2020-06-05 12:54 | disposition home or self-care (01) ==
LOC: M ED 07:18
DX: R51.9 Headache, unspecified (principal); I10 Essential (primary) hypertension; D49.7 Neoplasm of unspecified behavior of endocrine glands and other parts of nervous system; Z88.0 Allergy status to penicillin; Z88.1 Allergy status to other antibiotic agents; Z88.5 Allergy status to narcotic agent
CPT/HCPCS: 36415; 70450; 80047; 93005; 96361; 96374; 96375; 99285; J1200; J1885; J2765

== ENCOUNTER → 2020-06-20 | Outpatient (REF) | payer BC ==
[2020-06-20 14:36] LABS: MALB URINE SIEMENS 19.8 MG/L; MAU/CREAT RATIO 17.5 MCG/MG (0.0-30.0)
[2020-06-20 14:38] LABS: BLOOD UREA NITROGEN 10 MG/DL (7-18); CALCIUM LEVEL 8.6 MG/DL (8.5-10.1); CARBON DIOXIDE LEVEL 27 MEQ/L (21-32); CHLORIDE LEVEL 108 MEQ/L (98-107); CREATININE FOR GFR 0.68 MG/DL (0.55-1.30); GLOMERULAR FILTRATION RATE > 60.0 (>60); GLUCOSE, FASTING 83 MG/DL (70-100); POTASSIUM SERUM 4.3 MEQ/L (3.5-5.1); SODIUM LEVEL 139 MEQ/L (136-145); URIC ACID 5.3 MG/DL (2.6-6.0)
== END ==
LOC: M SFHCPLAZ 12:06
PROVIDERS: ATTEND Family Medicine
DX: I10 Essential (primary) hypertension (principal)

== ENCOUNTER → 2021-09-02 | Outpatient (CLI) | payer BC ==
[~2021-09-02] MED LIST changes: +LOSA100T45 PO; -LOSA100T50 PO
== END ==
LOC: M RAD 08:30
PROVIDERS: ATTEND Family Medicine
DX: E27.9 Disorder of adrenal gland, unspecified (principal)

== ENCOUNTER → 2021-10-02 | Outpatient (CLI) | payer BC ==
[2021-10-02 08:48] LABS: HEMATOCRIT 43.1 % (36.0-47.0); HEMOGLOBIN 14.4 g/dl (12.0-15.5); MEAN CORPUSCULAR HGB CONC 33.4 g/dl (32.0-36.5); MEAN CORPUSCULAR VOLUME 92.9 fl (80.0-96.0); PLATELET COUNT, AUTOMATED 294 10^3/uL (150-450); RED BLOOD COUNT 4.64 10^6/uL (4.00-5.40)
[2021-10-02 09:17] LABS: ALBUMIN 3.7 GM/DL (3.2-5.2); ALT/SGPT 75 U/L (12-78); BILIRUBIN,TOTAL 0.5 MG/DL (0.2-1.0); BLOOD UREA NITROGEN 14 MG/DL (7-18); CARBON DIOXIDE LEVEL 30 MEQ/L (21-32); CHLORIDE LEVEL 105 MEQ/L (98-107); CREATININE FOR GFR 0.75 MG/DL (0.55-1.30); GLOMERULAR FILTRATION RATE > 60.0 (>60); GLUCOSE, FASTING 104 MG/DL (70-100); HEMOGLOBIN A1c 5.5 %; POTASSIUM SERUM 3.9 MEQ/L (3.5-5.1); SODIUM LEVEL 141 MEQ/L (136-145); TOTAL PROTEIN 7.4 GM/DL (6.4-8.2)
[2021-10-02 09:36] LABS: CREATININE, URINE 90.9 MG/DL; MALB URINE SIEMENS 6.6 MG/L; MAU/CREAT RATIO 7.2 MCG/MG (0.0-30.0)
== END ==
LOC: M LAB 07:42
PROVIDERS: ATTEND Family Medicine
DX: E27.9 Disorder of adrenal gland, unspecified (principal); T78.49XA Other allergy, initial encounter; Z13.1 Encounter for screening for diabetes mellitus; I10 Essential (primary) hypertension

== ENCOUNTER → 2021-12-11 | Outpatient (CLI) | payer BC | LOC: M PLALAB 13:57 | PROVIDERS: ATTEND Family Medicine | DX: E66.01 Morbid (severe) obesity due to excess calories (principal) ==

== ENCOUNTER → 2021-12-11 | Outpatient (REF) | payer BC | LOC: M SFHCPLAZ 13:44 | PROVIDERS: ATTEND Family Medicine | DX: E66.01 Morbid (severe) obesity due to excess calories (principal) ==

== ENCOUNTER → 2022-05-19 | Outpatient (CLI) | payer BC ==
[2022-05-19 16:48] LABS: BASO # 0.1 10^3/uL (0.0-0.2); EOS # 0.2 10^3/uL (0.0-0.5); EOS % 1.8 % (0.0-3.0); HEMATOCRIT 42.9 % (36.0-47.0); HEMOGLOBIN 14.3 g/dl (12.0-15.5); LYMPH # 2.5 10^3/uL (1.5-5.0); LYMPH % 30.4 % (24.0-44.0); MEAN CORPUSCULAR HEMOGLOBIN 31.8 pg (27.0-33.0); MEAN CORPUSCULAR HGB CONC 33.3 g/dl (32.0-36.5); MEAN CORPUSCULAR VOLUME 95.3 fl (80.0-96.0); MONO # 0.6 10^3/uL (0.0-0.8); MONO % 7.2 % (2.0-8.0); NEUTROPHILS # 4.9 10^3/uL (1.5-8.5); NEUTROPHILS % 59.2 % (36.0-66.0); PLATELET COUNT, AUTOMATED 295 10^3/uL (150-450); WHITE BLOOD COUNT 8.3 10^3/uL (4.0-10.0)
[2022-05-19 17:34] LABS: FREE T4 0.82 NG/DL (0.76-1.46); THYROID STIMULATING HORMONE 7.38 uIU/ML (0.358-3.740)
[2022-05-19 18:13] LABS: THYROID PEROXIDASE ANTIBODY 35.4 U/ML (<60.0)
[2022-05-19 18:14] LABS: THYROGLOBULIN ANTIBODY 108.1 U/ML (<60.0)
== END ==
LOC: M WUC 11:33
PROVIDERS: ATTEND Family Medicine
DX: K04.7 Periapical abscess without sinus (principal); L03.119 Cellulitis of unspecified part of limb; E03.9 Hypothyroidism, unspecified; R53.83 Other fatigue

== ENCOUNTER → 2022-08-27 | Outpatient (CLI) | payer BC ==
[2022-08-27 08:22] LABS: FREE T4 0.85 NG/DL (0.89-1.76); TOTAL T3 102.6 NG/DL (60.0-181.0)
[2022-08-27 08:23] LABS: THYROID STIMULATING HORMONE 10.304 uIU/ML (0.55-4.78); THYROXINE (T4) 8.3 UG/DL (4.5-10.9)
== END ==
LOC: M LAB 07:29
PROVIDERS: ATTEND Family Medicine
DX: E03.9 Hypothyroidism, unspecified (principal); E07.89 Other specified disorders of thyroid

== ENCOUNTER → 2022-09-28 | Outpatient (CLI) | payer BC | LOC: M WHC 12:34 | PROVIDERS: ATTEND Student in an Organized Health Care Education/Training Program | DX: M54.2 Cervicalgia (principal); E04.1 Nontoxic single thyroid nodule ==

== ENCOUNTER → 2022-09-29 | Outpatient (CLI) | payer BC ==
[2022-09-29 07:47] LABS: HEMATOCRIT 41.1 % (36.0-47.0); MEAN CORPUSCULAR HEMOGLOBIN 31.1 pg (27.0-33.0); MEAN CORPUSCULAR HGB CONC 34.1 g/dl (32.0-36.5); MEAN CORPUSCULAR VOLUME 91.3 fl (80.0-96.0); PLATELET COUNT, AUTOMATED 264 10^3/uL (150-450); WHITE BLOOD COUNT 6.8 10^3/uL (4.0-10.0)
== END ==
LOC: M LAB 07:09
PROVIDERS: ATTEND Student in an Organized Health Care Education/Training Program
DX: R13.10 Dysphagia, unspecified (principal)

== ENCOUNTER → 2022-09-29 | Outpatient (CLI) | payer BC | LOC: M RAD 17:12 | PROVIDERS: ATTEND Student in an Organized Health Care Education/Training Program | DX: R13.10 Dysphagia, unspecified (principal) ==

== ENCOUNTER → 2022-11-03 | Outpatient (CLI) | payer BC ==
[2022-11-03 14:25] LABS: ALBUMIN 3.7 G/DL (3.2-5.2); ALKALINE PHOSPHATASE 110 U/L (46-116); ALT/SGPT 143 U/L (7.0-40); AST/SGOT 77 U/L (<34); BILIRUBIN,TOTAL 0.5 MG/DL (0.3-1.2); BLOOD UREA NITROGEN 9 MG/DL (9-23); CALCIUM LEVEL 9.1 MG/DL (8.5-10.1); CARBON DIOXIDE LEVEL 32 MMOL/L (20-31); CHLORIDE LEVEL 105 MMOL/L (98-107); CHOLESTEROL LEVEL 231 MG/DL (<200); CHOLESTEROL RISK RATIO 5.13 (<5); CREATININE FOR GFR 0.61 MG/DL (0.55-1.30); GLOMERULAR FILTRATION RATE > 60.0 (>60); GLUCOSE, FASTING 139 MG/DL (60-100); HEMATOCRIT 42.4 % (36.0-47.0); HEMOGLOBIN 14.6 g/dl (12.0-15.5); LDL CHOLESTEROL 145.4 MG/DL (<100); MEAN CORPUSCULAR HEMOGLOBIN 31.8 pg (27.0-33.0); MEAN CORPUSCULAR HGB CONC 34.4 g/dl (32.0-36.5); MEAN CORPUSCULAR VOLUME 92.4 fl (80.0-96.0); PLATELET COUNT, AUTOMATED 284 10^3/uL (150-450); POTASSIUM SERUM 3.7 MMOL/L (3.5-5.1); RED BLOOD COUNT 4.59 10^6/uL (4.00-5.40); SODIUM LEVEL 138 MMOL/L (136-145); TOTAL PROTEIN 7.2 G/DL (5.7-8.2); TRIGLYCERIDES LEVEL 203 MG/DL (<150); WHITE BLOOD COUNT 7.7 10^3/uL (4.0-10.0)
[2022-11-03 14:41] LABS: HEMOGLOBIN A1c 6.2 % (4.0-6.0)
[2022-11-03 14:48] LABS: CREATININE, URINE 171.9 MG/DL
[2022-11-03 14:49] LABS: MAU/CREAT RATIO 2.9 MCG/MG (0.0-30.0)
== END ==
LOC: M PLALAB 09:18
PROVIDERS: ATTEND Student in an Organized Health Care Education/Training Program
DX: I10 Essential (primary) hypertension (principal)

== ENCOUNTER → 2022-11-05 | Outpatient (CLI) | payer BC | LOC: M WHC 07:14 | PROVIDERS: ATTEND Student in an Organized Health Care Education/Training Program | DX: R74.01 Elevation of levels of liver transaminase levels (principal) ==

== ENCOUNTER → 2022-12-02 | Outpatient (CLI) | payer BC ==
[~2022-12-02] MED LIST changes: +E-Z-GAS II EFFERVESCENT PACKET (SODIUM BICARB./CITRIC ACID/SIMETHICONE) As Ordered ONE; +E-Z-HD 98% w/w 340GM SUSP BTL As Ordered ONE; +E-Z-PAQUE 96% w/w SUSP 176GM BTL As Ordered ONE; +ISOVUE-370 76% 100ML VIAL As Ordered ONE
== END ==
LOC: M RAD 08:08
PROVIDERS: ATTEND Student in an Organized Health Care Education/Training Program
DX: M54.2 Cervicalgia (principal)

== ENCOUNTER → 2023-01-26 | Outpatient (CLI) | payer BC ==
[~2023-01-26] MED LIST changes: -E-Z-GAS II EFFERVESCENT PACKET (SODIUM BICARB./CITRIC ACID/SIMETHICONE) As Ordered ONE; -E-Z-HD 98% w/w 340GM SUSP BTL As Ordered ONE; -E-Z-PAQUE 96% w/w SUSP 176GM BTL As Ordered ONE; -ISOVUE-370 76% 100ML VIAL As Ordered ONE; -LOSA100T45 PO; +LOSA100T46 PO
[2023-01-26 14:02] LABS: ALBUMIN 3.9 G/DL (3.2-5.2); BLOOD UREA NITROGEN 14 MG/DL (9-23); CARBON DIOXIDE LEVEL 30 MMOL/L (20-31); CHLORIDE LEVEL 103 MMOL/L (98-107); CREATININE FOR GFR 0.73 MG/DL (0.55-1.30); GLOMERULAR FILTRATION RATE > 60.0 (>58); GLUCOSE, FASTING 118 MG/DL (60-100); PHOSPHORUS LEVEL 3.3 MG/DL (2.5-4.9); POTASSIUM SERUM 3.9 MMOL/L (3.5-5.1); SODIUM LEVEL 139 MMOL/L (136-145)
[2023-01-26 14:04] LABS: HEPATITIS B SURFACE ANTIBODY POSITIVE (POSITIVE)
[2023-01-26 14:05] LABS: FREE T4 0.93 NG/DL (0.89-1.76); THYROID STIMULATING HORMONE 6.528 uIU/ML (0.55-4.78)
[2023-01-26 14:16] LABS: HEPATITIS B SURFACE ANTIGEN NEGATIVE (NEGATIVE)
[2023-01-29 02:07] LABS: HEPATITIS C QUANTITATION HCV Not Detected IU/mL (.)
== END ==
LOC: M PLALAB 10:29
PROVIDERS: ATTEND Family Medicine
DX: R74.01 Elevation of levels of liver transaminase levels (principal); E03.9 Hypothyroidism, unspecified; K75.81 Nonalcoholic steatohepatitis (NASH); I25.2 Old myocardial infarction

== ENCOUNTER → 2023-04-07 | Outpatient (REF) | payer BC ==
[2023-04-07 22:29] LABS: APPEARANCE, URINE CLOUDY (CLEAR); BACTERIA, URINE AUTO 2+ (NEGATIVE); BILIRUBIN, URINE AUTO NEGATIVE (NEGATIVE); BLOOD, URINE BLOOD 2+ (NEGATIVE); COLOR, URINE YELLOW (YELLOW); GLUCOSE, URINE (UA) AUTO NEGATIVE (NEGATIVE); KETONE, URINE AUTO NEGATIVE (NEGATIVE); LEUKOCYTE ESTERASE, URINE AUTO 3+ (NEGATIVE); MUCUS, URINE SMALL (NEGATIVE); NITRITE, URINE AUTO NEGATIVE (NEGATIVE); PROTEIN, URINE AUTO 2+ mg/dL (NEGATIVE); RBC, URINE AUTO 43 /HPF (0-3); SPECIFIC GRAVITY URINE AUTO 1.018 (1.002-1.035); SQUAMOUS EPITHELIAL CELL UR AU 4 /HPF (0-6); WBC, URINE AUTO TNTC /HPF (0-3)
== END ==
LOC: M LAB REF 21:45
PROVIDERS: ATTEND Physician Assistant Medical
DX: N39.0 Urinary tract infection, site not specified (principal)

== ENCOUNTER → 2023-06-23 | Outpatient (REF) | payer BC | LOC: M SFHCPLAZ 11:23 | PROVIDERS: ATTEND Family Medicine | DX: Z53.9 Procedure and treatment not carried out, unspecified reason (principal); E03.9 Hypothyroidism, unspecified; R19.7 Diarrhea, unspecified; R23.2 Flushing ==

== ENCOUNTER → 2023-06-24 | Outpatient (CLI) | payer BC | LOC: M LAB 07:28 | PROVIDERS: ATTEND Family Medicine | DX: E03.9 Hypothyroidism, unspecified (principal); R19.7 Diarrhea, unspecified; R23.2 Flushing ==

== ENCOUNTER → 2023-07-15 | Outpatient (CLI) | payer BC, SELFPAY ==
[2023-07-15 10:36] LABS: FREE T4 0.92 NG/DL (0.89-1.76); THYROID STIMULATING HORMONE 4.522 uIU/ML (0.55-4.78)
== END ==
LOC: M LAB 09:07
PROVIDERS: ATTEND Family Medicine
DX: E03.9 Hypothyroidism, unspecified (principal); R19.7 Diarrhea, unspecified; R23.2 Flushing

== ENCOUNTER → 2024-02-09 | Outpatient (REF) | payer BC | LOC: M SFHCPLAZ 22:55 | PROVIDERS: ATTEND Family Medicine | DX: Z53.20 Procedure and treatment not carried out because of patient's decision for unspecified reasons (principal) ==

== ENCOUNTER → 2024-02-09 | Outpatient (CLI) | payer BC ==
[2024-02-09 18:00] LABS: CREATININE, URINE 60.3 MG/DL; MAU/CREAT RATIO 8.2 MCG/MG (0.0-30.0)
== END ==
LOC: M PLALAB 16:14
PROVIDERS: ATTEND Family Medicine
DX: E11.9 Type 2 diabetes mellitus without complications (principal)

== ENCOUNTER → 2024-04-12 | Outpatient (REF) | payer BC | LOC: M SFHCPLAZ 15:37 | PROVIDERS: ATTEND Family Medicine | DX: E11.9 Type 2 diabetes mellitus without complications (principal); I10 Essential (primary) hypertension; I15.2 Hypertension secondary to endocrine disorders; E03.9 Hypothyroidism, unspecified ==

== ENCOUNTER → 2024-04-30 | Outpatient (CLI) | payer BC ==
[2024-04-30 12:10] LABS: BLOOD UREA NITROGEN 11 MG/DL (9-23); CALCIUM LEVEL 9.5 MG/DL (8.5-10.1); CARBON DIOXIDE LEVEL 30 MMOL/L (20-31); CHLORIDE LEVEL 105 MMOL/L (98-107); CREATININE FOR GFR 0.72 MG/DL (0.55-1.30); GLOMERULAR FILTRATION RATE > 60.0 (>58); GLUCOSE, FASTING 117 MG/DL (60-100); MAGNESIUM LEVEL 1.6 MG/DL (1.8-2.4); POTASSIUM SERUM 3.7 MMOL/L (3.5-5.1); SODIUM LEVEL 137 MMOL/L (136-145)
[2024-04-30 12:12] LABS: FREE T4 1.17 NG/DL (0.89-1.76)
[2024-04-30 12:13] LABS: THYROID STIMULATING HORMONE 5.177 uIU/ML (0.55-4.78)
[2024-04-30 12:44] LABS: HEMOGLOBIN A1c 5.4 % (4.0-6.0)
== END ==
LOC: M PLALAB 07:33
PROVIDERS: ATTEND Family Medicine
DX: E11.9 Type 2 diabetes mellitus without complications (principal); I10 Essential (primary) hypertension; I15.2 Hypertension secondary to endocrine disorders; E03.9 Hypothyroidism, unspecified

== ENCOUNTER → 2024-06-05 | Outpatient (CLI) | payer BC ==
[~2024-06-05] MED LIST changes: +ISOVUE-370 76% 100ML VIAL ONE
== END ==
LOC: M PLAIMG 09:41
PROVIDERS: ATTEND Family Medicine
DX: R22.1 Localized swelling, mass and lump, neck (principal)
CPT/HCPCS: 70491; Q9967

== ENCOUNTER → 2024-09-13 | Outpatient (CLI) | payer BC ==
[~2024-09-13] MED LIST changes: -ISOVUE-370 76% 100ML VIAL ONE
[2024-09-13 15:40] LABS: HEMOGLOBIN 13.9 g/dl (12.0-15.5); MEAN CORPUSCULAR HEMOGLOBIN 32.2 pg (27.0-33.0); MEAN CORPUSCULAR HGB CONC 33.9 g/dl (32.0-36.5); MEAN CORPUSCULAR VOLUME 94.9 fl (80.0-96.0); PLATELET COUNT, AUTOMATED 319 10^3/uL (150-450); RED BLOOD COUNT 4.32 10^6/uL (4.00-5.40)
[2024-09-13 15:49] LABS: FREE T4 1.22 NG/DL (0.89-1.76)
[2024-09-13 15:50] LABS: THYROID STIMULATING HORMONE 3.107 uIU/ML (0.55-4.78); TOTAL 25(OH) VITAMIN D 11.7 NG/ML (20.0-100.0)
[2024-09-13 17:00] LABS: HEMOGLOBIN A1c 5.7 % (4.0-6.0)
== END ==
LOC: M PLALAB 13:11
PROVIDERS: ATTEND Family Medicine
DX: E03.9 Hypothyroidism, unspecified (principal); R53.83 Other fatigue; E11.9 Type 2 diabetes mellitus without complications

== ENCOUNTER → 2024-09-13 | Outpatient (REF) | payer BC | LOC: M SFHCPLAZ 15:03 | PROVIDERS: ATTEND Family Medicine | DX: E11.9 Type 2 diabetes mellitus without complications (principal) ==

== ENCOUNTER → 2024-10-24 | Outpatient (CLI) | payer BC | LOC: M PLAIMG 14:29 | PROVIDERS: ATTEND Family Medicine | DX: I10 Essential (primary) hypertension (principal); E27.9 Disorder of adrenal gland, unspecified ==

== ENCOUNTER → 2024-12-21 | Outpatient (REF) | payer BC | LOC: M SFHCPLAZ 12:07 | PROVIDERS: ATTEND Family Medicine | DX: Z53.9 Procedure and treatment not carried out, unspecified reason (principal) ==

== ENCOUNTER → 2025-02-28 | Outpatient (CLI) | payer BC ==
[2025-02-28 17:39] LABS: TOTAL 25(OH) VITAMIN D 66.7 NG/ML (20.0-100.0)
[2025-02-28 17:41] LABS: FREE T4 1.56 NG/DL (0.89-1.76)
== END ==
LOC: M PLALAB 16:02
PROVIDERS: ATTEND Family Medicine
DX: E55.9 Vitamin D deficiency, unspecified (principal); E03.9 Hypothyroidism, unspecified